=== PATIENT | male | born 1990 | race Caucasian/White ===

== ENCOUNTER 2018-05-15 22:28 | Emergency (ER) | payer BC | END 2018-05-16 00:43 | disposition left against medical advice (07) | LOC: JD.ED 22:28 | DX: Z53.21 Procedure and treatment not carried out due to patient leaving prior to being seen by health care provider (principal) ==

== ENCOUNTER 2018-06-05 11:05 | Inpatient (IN) | payer BC, MEDICAID ==
[2018-06-05] MEDS ORDERED: Sodium Chloride 0.9% 1,000 ML IV ONE ×3 (11:25→14:43)
[2018-06-05] MEDS ORDERED: Thiamine 100 MG in Sodium Chloride 0.9% 100 ML IV ONE (11:57)
[2018-06-05] MEDS ORDERED: Thiamine 200 MG/2 ML MDV IVPUSH ONE (12:15)
[2018-06-05] MEDS ORDERED: Multivitamins,Therapeutic Tab PO ONE (12:30)
[2018-06-05] MEDS ORDERED: Folic Acid 1 MG Tab PO ONE ×2 (12:30→13:32)
[2018-06-05] MEDS ORDERED: LORazepam 2 MG/ML SDV IVPUSH ONE (12:34)
--- NOTE | 2018-06-05 12:42 | EDM.PDOCBH ---
ED HPI GENERAL MEDICAL PROBLEM - General Chief Complaint: Drug or Alcohol Abuse Stated Complaint: [facility] Time Seen by Provider: 06/05/18 11:16 Source of Information: Reports: Patient, Family History Limitations: Reports: No Limitations, Intoxication - History of Present Illness INITIAL COMMENTS - FREE TEXT/NARRATIVE: 28 yo M h/o DM2 and HTN brought in by mother for EtOH detox as he has been drinking the past 6 days. His last drink was at 8:00 today. He has not eaten since Monday and doesn't remember the last time he took any of his medications. He stated he didn't even know what day it was until he asked EMS. He states he was "forced to come here" but after talking with him he is " looking forward to rehab and I really do want help". He states he has h/o depression and anxiety and self-medicates with drinking. He feels he has not been able to find help for these issues, has never been to counseling but is interested. He has detoxed before, but has no previous history of DT, seizures/ hallucinations that he knows of, just "shakes and sweats " a lot. He has been drinking for the past 11 years, with it "becoming an addiction" within the last 6-7 years where he is drinking 2L of spiced rum daily. He had 1 year of drinking daily and "was only sober 4 nights that year". He was last sober January 2017 for 7 months, then started drinking again in August 2017. He states has times where he will quit "cold turkey off and on" for a couple weeks at a time. At this point, he has trouble stopping and does have suicidal thoughts, stating "I thought I'd be by now". He denies any suicidal plan, states "I don't want to and I'm too much of a coward to actually do it", and denies homicidal ideation. He states his family is his support system and the reason he is still alive. He does have guns at home, but mother has since taken them all away. He denies any other symptoms at this time, except one episode of vomiting. No other concern at this time. PCP is Dr. Bauer. - Related Data Allergies Allergy/AdvReac Type Severity Reaction Status Date / Time No Known Allergies Allergy Verified 06/05/18 11:11 Home Meds: Home Meds FLUoxetine HCl [Fluoxetine] 40 mg PO DAILY 05/15/18 [History] Nebivolol HCl [Bystolic] 1 tab PO DAILY 05/15/18 [History] Valsartan 1 tab PO DAILY 05/15/18 [History] amLODIPine Besylate [Amlodipine Besylate] 1 tab PO DAILY 05/15/18 [History] Past Medical History Cardiovascular History: Reports: Hypertension Respiratory History: Reports: Asthma Psychiatric History: Reports: Anxiety, Depression Endocrine/Metabolic History: Reports: Diabetes, Type II Social & Family History - Tobacco Use Smoking Status *Q: Never Smoker - Caffeine Use Caffeine Use: Reports: Soda - Recreational Drug Use Recreational Drug Use: No ED ROS GENERAL - Review of Systems Review Of Systems: ROS reveals no pertinent complaints other than HPI. GI/Abdominal: Reports: Vomiting (1 episode earlier today). Denies: Abdominal Pain, Diarrhea, Nausea ED EXAM, BEHAVIORAL HEALTH - Physical Exam Exam: See Below Exam Limited By: Intoxication General Appearance: Alert, Anxious, Obese Eye Exam: Bilateral Eye: EOMI, Normal Inspection, PERRL Ears: Normal External Exam, Hearing Grossly Normal Nose: Normal Inspection, Normal Mucosa, No Blood Throat/Mouth: Normal Inspection, Normal Lips, Normal Teeth, Normal Gums, Normal Oropharynx, Normal Voice, No Airway Compromise Head: Atraumatic, Normocephalic Neck: Normal Inspection, Supple, Non-Tender, Full Range of Motion Respiratory/Chest: No Respiratory Distress, Lungs Clear, Normal Breath Sounds, No Accessory Muscle Use, Chest Non-Tender Cardiovascular: Normal Peripheral Pulses, No Edema, No Gallop, No JVD, No Murmur , No Rub, Tachycardia GI/Abdominal: Normal Bowel Sounds, Soft, Non-Tender, No Organomegaly, No Distention, No Abnormal Bruit, No Mass (Male) Exam: Deferred Rectal (Males) Exam: Deferred Back Exam: Normal Inspection Psychiatric: Alert, Normal Cognition, Oriented, Depressed Mood, Tearful, Suicidal Thoughts. No: Homicidal Thoughts, Suicidal Plan, Auditory Hallucinations, Visual Hallucinations Skin Exam: Warm, Dry, Intact, Normal color COURSE, BEHAVIORAL HEALTH COMP - Course Vital Signs: Last Vital Signs Temp 98.8 F 06/05/18 11:07 Pulse 113 H 06/05/18 11:07 Resp 16 06/05/18 11:07 BP 132/52 L 06/05/18 11:07 Pulse Ox 92 L 06/05/18 11:07 Orders, Labs, Meds: Active Orders 24 hr Category Date Time Status CIWAA Assessment [RC] Q30M Care 06/05/18 12:30 Active DRUG SCREEN, URINE [URCHEM] Stat Lab 06/05/18 11:23 Ordered Sodium Chloride 0.9% [Normal Saline] 1,000 ml Med 06/05/18 14:43 Active IV ONETIME Medication Orders Sodium Chloride (Normal Saline) 1,000 mls @ 999 mls/hr IV ONETIME ONE Stop: 06/05/18 15:43 Laboratory Tests 06/05/18 06/05/18 Range/Units 11:25 11:25 WBC 14.87 H (4.23-9.07) K/mm3 RBC 5.57 (4.63-6.08) M/mm3 Hgb 15.2 (13.7-17.5) gm/L Hct 43.8 (40.1-51.0) % MCV 78.6 L (79.0-92.2) fl MCH 27.3 (25.7-32.2) pg MCHC 34.7 (32.2-35.5) g/dl RDW Std Deviation 44.9 H (35.1-43.9) fL Plt Count 336 (163-337) K/mm3 MPV 8.4 L (9.4-12.3) fl Neut % (Auto) 85.2 H (34.0-67.9) % Lymph % (Auto) 6.9 L (21.8-53.1) % [place] % (Auto) 6.2 (5.3-12.2) % Eos % (Auto) 0.7 L (0.8-7.0) Baso % (Auto) 0.7 (0.1-1.2) % Neut # (Auto) 12.66 H (1.78-5.38) K/mm3 Lymph # (Auto) 1.03 L (1.32-3.57) K/mm3 [place] # (Auto) 0.92 H (0.30-0.82) K/mm3 Eos # (Auto) 0.11 (0.04-0.54) K/mm3 Baso # (Auto) 0.10 H (0.01-0.08) K/mm3 Manual Slide Review Abnormal smear Sodium 138 (136-145) mEq/L Potassium 4.2 (3.5-5.1) mEq/L Chloride 100 (98-107) mEq/L Carbon Dioxide 18 L (21-32) mEq/L Anion Gap 24.2 H (5-15) BUN 17 (7-18) mg/dL Creatinine 1.5 H (0.7-1.3) mg/dL Est Cr Clr Drug Dosing 72.01 mL/min Estimated GFR (MDRD) 55 (>60) mL/min BUN/Creatinine Ratio 11.3 L (14-18) Glucose 138 H (74-106) mg/dL Calcium 8.8 (8.5-10.1) mg/dL Total Bilirubin 0.4 (0.2-1.0) mg/dL AST 62 H (15-37) U/L ALT 68 H (16-63) U/L Alkaline Phosphatase 119 H (46-116) U/L Total Protein 7.8 (6.4-8.2) g/dl Albumin 4.0 (3.4-5.0) g/dl Globulin 3.8 gm/dL Albumin/Globulin Ratio 1.1 (1-2) Ethyl Alcohol 0.25 (0.00) gm% Medications Generic Name Dose Route Start Last Admin Trade Name Freq PRN Reason Stop Dose Admin Sodium Chloride 1,000 mls @ 999 mls/hr 06/05/18 14:43 Normal Saline IV 06/05/18 15:43 ONETIME ONE Discontinued Medications Generic Name Dose Route Start Last Admin Trade Name Jeanq PRN Reason Stop Dose Admin Folic Acid 1 mg 06/05/18 12:30 06/05/18 13:33 Folic Acid PO 06/05/18 12:31 Not Given ONETIME ONE Folic Acid 1 mg 06/05/18 13:32 06/05/18 13:33 Folic Acid PO 06/05/18 13:33 1 mg ONETIME ONE Administration Sodium Chloride 1,000 mls @ 999 mls/hr 06/05/18 11:25 06/05/18 12:01 Normal Saline IV 06/05/18 12:25 999 mls/hr ONETIME ONE Administration Thiamine HCl 100 mg/ Sodium 101 mls @ 202 mls/hr 06/05/18 11:57 Chloride IV 06/05/18 11:58 ONETIME ONE Sodium Chloride 1,000 mls @ 999 mls/hr 06/05/18 12:41 06/05/18 13:11 Normal Saline IV 06/05/18 13:41 999 mls/hr ONETIME ONE Administration Lorazepam 0.5 mg 06/05/18 12:34 06/05/18 13:12 Ativan IVPUSH 06/05/18 12:35 0.5 mg ONETIME ONE Administration Multivitamins 1 each 06/05/18 12:30 06/05/18 13:22 Thera PO 06/05/18 12:31 1 each ONETIME ONE Administration Thiamine HCl 100 mg 06/05/18 12:15 06/05/18 12:24 Vitamin B-1 IVPUSH 06/05/18 12:16 100 mg ONETIME ONE Administration Re-Assessment/Re-Exam: 06/05/18 11:25 I ordered CBC, CMP, Urine Drug Screen, EtOH 1L bolus NS IVF Thiamine, Folic Acid, Multivitamin 06/05/18 12:41 Ativan 0.5 IV push Ordered another 1L bolus NS IVF 06/05/18 13:00 Pt states he is feeling better, is resting right now. 06/05/18 14:[address] Zepeda our hospitalist. He will come see the patient and decide if can be admitted. 06/05/18 15:07 Dr. Zepeda has accepted the patient. He would like him placed in ICU. Departure - Departure Time of Disposition: 15:08 Disposition: Admitted As Inpatient 64 Condition: Fair Clinical Impression: Alcohol withdrawal syndrome, Alcohol abuse - Discharge Information *PRESCRIPTION DRUG MONITORING PROGRAM REVIEWED*: Not Applicable *COPY OF PRESCRIPTION DRUG MONITORING REPORT IN PATIENT MELANIA: Not Applicable Referrals: João Mazariegos MD [Primary Care Provider] - - My Orders Last 24 Hours: My Active Orders 06/05/18 11:23 DRUG SCREEN, URINE [URCHEM] Stat 06/05/18 12:30 CIWAA Assessment [RC] Q30M 06/05/18 14:43 Sodium Chloride 0.9% [Normal Saline] 1,000 ml IV ONETIME - Assessment/Plan Last 24 Hours: My Active Orders 06/05/18 11:23 DRUG SCREEN, URINE [URCHEM] Stat 06/05/18 12:30 CIWAA Assessment [RC] Q30M 06/05/18 14:43 Sodium Chloride 0.9% [Normal Saline] 1,000 ml IV ONETIME
[2018-06-05] MEDS ORDERED: Ondansetron 4 MG Tab.DIS PO PRN (16:09)
[2018-06-05] MEDS ORDERED: AMLODIPINE BESYLATE PO SCH (16:15)
[2018-06-05] MEDS ORDERED: LORazepam 2 MG/ML SDV IVPUSH PRN ×3 (16:15→18:02)
[2018-06-05] MEDS ORDERED: VALSARTAN PO SCH (16:15)
[2018-06-05] MEDS ORDERED: FLUOXETINE HCL 40 MG PO SCH (16:15)
[2018-06-05] MEDS ORDERED: NEBIVOLOL HCL PO SCH (16:15)
--- NOTE | 2018-06-05 17:03 | PCM.HP ---
H&P History of Present Illness - General Date of Service: 06/05/18 Admit Problem/Dx: Admission Diagnosis/Problem Admission Diagnosis/Problem Alcohol withdrawal syndrome - History of Present Illness Initial Comments - Free Text/Narative: This 28-year-old male was brought in by EMS secondary to alcohol intoxication. Patient states that he "got caught" drinking and his family and friends want him to go through detox. Patient states that he becomes socially withdrawn and his friends and noticed the start strengthening again. He has a long 5 to six- year history of heavy drinking. Or the last year to year and a half he has been drinking 1.75 L of 60 proof alcohol for several days in a row and then will stop drinking cold turkey. He states when he does he does get shaky but he does not have any seizures or other repercussions. Previous to a urinary half ago he was a daily drinker and did go through rehabilitation. ER note states that he has been drinking for 11 years. 2 weeks ago he did discuss this and his anxiety with his primary care doctor Dr. Bauer and he was set up with [facility] clinic. He went to the walk in screening and never followed up for care. Patient has been drinking for the last 6 days and his last drink was this morning. He had 8 ounces of spiced rum. He did state he vomited one time this morning. Patient denies any abdominal pain, chest pain, shortness of breath , hematochezia, melena, black stools, bloody stools. He denies any hematemesis. When asked if he wanted to go through rehabilitation he stated, "I want to quit but I am not sure I am ready to." Patient states he is also on metformin for diabetes. He also states that last month he had a hemoglobin A1c done which was 5.2. He is on medication for blood pressure and anxiety. - Related Data Allergies/Adverse Reactions: Allergies Allergy/AdvReac Type Severity Reaction Status Date / Time No Known Allergies Allergy Verified 06/05/18 11:11 Home Medications: Home Meds FLUoxetine HCl [Fluoxetine] 40 mg PO DAILY 05/15/18 [History] Nebivolol HCl [Bystolic] 1 tab PO DAILY 05/15/18 [History] Valsartan 1 tab PO DAILY 05/15/18 [History] amLODIPine Besylate [Amlodipine Besylate] 1 tab PO DAILY 05/15/18 [History] Past Medical History Cardiovascular History: Reports: Hypertension Respiratory History: Reports: Asthma Psychiatric History: Reports: Anxiety, Depression Endocrine/Metabolic History: Reports: Diabetes, Type II Social & Family History - Tobacco Use Smoking Status *Q: Never Smoker - Caffeine Use Caffeine Use: Reports: Soda - Recreational Drug Use Recreational Drug Use: No H&P Review of Systems - Review of Systems: Review Of Systems: See Below General: Reports: No Symptoms. Denies: Fever, Chills, Weakness HEENT: Reports: No Symptoms. Denies: Dysphasia, Sore Throat Pulmonary: Reports: No Symptoms. Denies: Shortness of Breath, Wheezing Cardiovascular: Reports: No Symptoms. Denies: Chest Pain, Palpitations Gastrointestinal: Reports: No Symptoms. Denies: Abdominal Pain Genitourinary: Reports: No Symptoms. Denies: Dysuria, Frequency Musculoskeletal: Reports: No Symptoms. Denies: Back Pain, Muscle Pain Skin: Reports: No Symptoms Psychiatric: Denies: Confusion, Depression, Agitation, Hallucinations (Auditory) , Hallucinations (Visual) Neurological: Denies: Confusion, Dizziness, Headache, Seizure, Change in Speech Hematologic/Lymphatic: Reports: No Symptoms Immunologic: Reports: No Symptoms Exam - Exam Exam: See Below - Vital Signs Vital Signs: Last Vital Signs Temp 98.8 F 06/05/18 11:07 Pulse 113 H 06/05/18 11:07 Resp 16 06/05/18 11:07 BP 132/52 L 06/05/18 11:07 Pulse Ox 92 L 06/05/18 11:07 Weight: 340 lb - Exam Quality Assessment: No: Supplemental Oxygen General: Alert, Oriented, Cooperative, Sedated HEENT: Conjunctiva Clear. No: Mucosa Moist & [place] Neck: Supple, Trachea Midline Lungs: Clear to Auscultation, Normal Respiratory Effort Cardiovascular: Regular Rate, Regular Rhythm GI/Abdominal Exam: Normal Bowel Sounds, Soft, Non-Tender, No Organomegaly, No Distention Extremities: Normal Inspection, Normal Range of Motion, No Pedal Edema, Normal Capillary Refill Skin: Warm, Dry, Intact Neurological: Cranial Nerves Intact, Strength Equal Bilateral, Normal Tone Neuro Extensive - Mental Status: Alert, Oriented x3, Normal Mood/Affect, Normal Cognition, Memory Intact Neuro Extensive - Motor, Sensory, Reflexes: CN II-XII Intact Psychiatric: Alert, Normal Affect, Normal Mood - Patient Data Lab Results Last 24 hrs: Laboratory Results - last 24 hr 06/05/18 06/05/18 06/05/18 Range/Units 11:25 11:25 15:30 WBC 14.87 H (4.23-9.07) K/mm3 RBC 5.57 (4.63-6.08) M/mm3 Hgb 15.2 (13.7-17.5) gm/L Hct 43.8 (40.1-51.0) % MCV 78.6 L (79.0-92.2) fl MCH 27.3 (25.7-32.2) pg MCHC 34.7 (32.2-35.5) g/dl RDW Std Deviation 44.9 H (35.1-43.9) fL Plt Count 336 (163-337) K/mm3 MPV 8.4 L (9.4-12.3) fl Neut % (Auto) 85.2 H (34.0-67.9) % Lymph % (Auto) 6.9 L (21.8-53.1) % [place] % (Auto) 6.2 (5.3-12.2) % Eos % (Auto) 0.7 L (0.8-7.0) Baso % (Auto) 0.7 (0.1-1.2) % Neut # (Auto) 12.66 H (1.78-5.38) K/mm3 Lymph # (Auto) 1.03 L (1.32-3.57) K/mm3 [place] # (Auto) 0.92 H (0.30-0.82) K/mm3 Eos # (Auto) 0.11 (0.04-0.54) K/mm3 Baso # (Auto) 0.10 H (0.01-0.08) K/mm3 Manual Slide Review Abnormal smear Sodium 138 (136-145) mEq/L Potassium 4.2 (3.5-5.1) mEq/L Chloride 100 (98-107) mEq/L Carbon Dioxide 18 L (21-32) mEq/L Anion Gap 24.2 H (5-15) BUN 17 (7-18) mg/dL Creatinine 1.5 H (0.7-1.3) mg/dL Est Cr Clr Drug Dosing 72.01 mL/min Estimated GFR (MDRD) 55 (>60) mL/min BUN/Creatinine Ratio 11.3 L (14-18) Glucose 138 H (74-106) mg/dL Calcium 8.8 (8.5-10.1) mg/dL Total Bilirubin 0.4 (0.2-1.0) mg/dL AST 62 H (15-37) U/L ALT 68 H (16-63) U/L Alkaline Phosphatase 119 H (46-116) U/L Total Protein 7.8 (6.4-8.2) g/dl Albumin 4.0 (3.4-5.0) g/dl Globulin 3.8 gm/dL Albumin/Globulin Ratio 1.1 (1-2) Urine Opiates Screen Negative (ZDQXYF=579) Ur Buprenorphine Scrn Negative (CUTOFF=10) Ur Oxycodone Screen Negative (TZY5MZ=901) Urine Methadone Screen Negative (XAG4HP=035) Ur Propoxyphene Screen Negative (UOMWUG=550) Ur Barbiturates Screen Negative (YBPTTE=865) Ur Tricyclics Screen Negative (NOTZHU=665) Ur Phencyclidine Scrn Negative (CUTOFF=25) Ur Amphetamine Screen Negative (YNBWHU=304) U Methamphetamines Scrn Negative (DTHFHX=974) U Benzodiazepines Scrn Negative (LAZXBO=784) U Cocaine Metab Screen Negative (EXFUFD=663) U Marijuana (THC) Screen Negative (CUTOFF=50) Ethyl Alcohol 0.25 (0.00) gm% Result Diagrams: 06/05/18 11:25 06/05/18 11:25 - Problem List (1) Alcohol withdrawal syndrome SNOMED Code(s): 585290709 ICD Code: F10.239 - ALCOHOL DEPENDENCE WITH WITHDRAWAL, UNSPECIFIED Status : Acute Current Visit: Yes (2) Alcohol abuse SNOMED Code(s): 10338396 ICD Code: F10.10 - ALCOHOL ABUSE, UNCOMPLICATED Status: Acute Current Visit: Yes (3) Anxiety SNOMED Code(s): 71827878 ICD Code: F41.9 - ANXIETY DISORDER, UNSPECIFIED Status: Acute Current Visit: Yes (4) HTN (hypertension) SNOMED Code(s): 94390415 ICD Code: I10 - ESSENTIAL (PRIMARY) HYPERTENSION Status: Acute Current Visit: Yes Problem List Initiated/Reviewed/Updated: Yes Orders Last 24hrs: Active Orders 24 hr Category Date Time Status Patient Status [ADT] Routine ADT 06/05/18 16:09 Active Bedrest Bathroom Privileges [RC] ASDIRECTED Care 06/05/18 16:09 Active CIWAA Assessment [RC] Q30M Care 06/05/18 12:30 Active Cardiac Monitoring [RC] CONTINUOUS Care 06/05/18 16:10 Active Height and Weight [RC] DAILY Care 06/05/18 16:09 Active Intake and Output [RC] QSHIFT Care 06/05/18 16:10 Active Oxygen Therapy [RC] PRN Care 06/05/18 16:09 Active Pulse Oximetry [RC] CONTINUOUS Care 06/05/18 16:10 Active VTE/DVT Education [RC] PER UNIT ROUTINE Care 06/05/18 16:09 Active Vital Signs [RC] Q4H Care 06/05/18 16:09 Active Consult to Case Management/Hairspring Staker [CONS] Cons 06/05/18 16:09 Active Routine Regular Diet [DIET] Diet 06/05/18 Dinner Active CBC WITH AUTO DIFF [HEME] AM Lab 06/06/18 05:11 Ordered COMPREHENSIVE METABOLIC PN,CMP [CHEM] AM Lab 06/06/18 05:11 Ordered MAGNESIUM [CHEM] AM Lab 06/06/18 05:11 Ordered PHOSPHORUS [CHEM] AM Lab 06/06/18 05:11 Ordered Enoxaparin [Lovenox] Med 06/06/18 09:00 Active 40 mg SUBCUT DAILY FLUoxetine HCl Med 06/05/18 16:15 Active 40 mg PO DAILY LORazepam [Ativan] Med 06/05/18 16:37 Ordered 1 mg IVPUSH ASDIRECTED PRN Lactated Ringers [Ringers, Lactated] 1,000 ml Med 06/05/18 16:15 Active IV ASDIRECTED Nebivolol HCl [Bystolic] Med 06/05/18 16:15 Active 1 tab PO DAILY Ondansetron [Zofran ODT] Med 06/05/18 16:09 Active 4 mg PO Q4H PRN Ondansetron [Zofran] Med 06/05/18 16:09 Active 4 mg IV Q4H PRN Valsartan [Valsartan] Med 06/05/18 16:15 Active 1 tab PO DAILY amLODIPine Besylate [Amlodipine Besylate] Med 06/05/18 16:15 Active 1 tab PO DAILY chlordiazePOXIDE [Librium] Med 06/05/18 16:18 Active 100 mg PO TID Resuscitation Status Routine Resus Stat 06/05/18 16:09 Ordered Medication Orders Chlordiazepoxide HCl (Librium) 100 mg PO TID TIERA Enoxaparin Sodium (Lovenox) 40 mg SUBCUT DAILY TIERA Lactated Ringer's (Ringers, Lactated) 1,000 mls @ 200 mls/hr IV ASDIRECTED TIERA Lorazepam (Ativan) 1 mg IVPUSH ASDIRECTED PRN; Protocol PRN Reason: Withdrawal Symptoms Non-Formulary Medication (Amlodipine Besylate [Amlodipine Besylate]) 1 tab PO DAILY TIERA Non-Formulary Medication (Fluoxetine Hcl) 40 mg PO DAILY TIERA Non-Formulary Medication (Nebivolol Hcl [Bystolic]) 1 tab PO DAILY TIERA Non-Formulary Medication (Valsartan [Valsartan]) 1 tab PO DAILY TIERA Ondansetron HCl (Zofran Odt) 4 mg PO Q4H PRN PRN Reason: nausea, able to take PO Ondansetron HCl (Zofran) 4 mg IV Q4H PRN PRN Reason: Nausea/Vomiting Assessment/Plan Comment:: Alcohol abuse with intent to detox * Patient will be brought in to the hospital for occult detoxification. * Admit to ICU with CIWA and Ativan protocol * Librium 50 mg 3 times a day * Consult discharge planning and social work. * Rehydrate to correct anion gap * Monitor electrolytes closely. * Low seizure risk. Anxiety * Continue on Prozac 40 mg a day. * Consider outpatient therapy. Hypertension * Continue home meds. Chewing tobacco abuse * Patient does not want a patch at this time. Monitor closely. Chronic medical conditions: Asthma and possible type 2 diabetes. Monitor respiratory. He is not on any home inhalers. Get hemoglobin A1c. Reportedly his last hemoglobin A1c was 5.2. We will not restart his metformin.
[2018-06-05] MEDS: Lactated Ringers 1,000 ML IV SCH ×2 (17:22→22:28)
[2018-06-05] MEDS: chlordiazePOXIDE 25 MG Cap PO SCH ×2 (17:44→20:58)
[2018-06-05] MEDS: Ondansetron 4 MG/2 ML SDV IV PRN ×2 (17:57→22:28)
[2018-06-06] MEDS: Lactated Ringers 1,000 ML IV SCH (03:45)
[2018-06-06] MEDS ORDERED: Formoterol/Mometasone 200-5 MCG 8.8 GM Inhaler IH PRN (06:59)
[2018-06-06] MEDS ORDERED: Magnesium Sulfate/Water 4 GM in Premix Bag 1 BAG IV ONE (07:18)
[2018-06-06] MEDS: Dextrose 5%-Lactated Ringers 1,000 ML IV SCH ×2 (07:57→16:12)
[2018-06-06] MEDS: FLUoxetine 20 MG Cap PO SCH (08:42)
[2018-06-06] MEDS: Hydrochlorothiazide 25 MG Tab PO SCH (08:42)
[2018-06-06] MEDS: chlordiazePOXIDE 25 MG Cap PO SCH ×5 (08:42→20:56)
[2018-06-06] MEDS: Losartan 100 MG Tab PO SCH (08:43)
[2018-06-06] MEDS: Pantoprazole 40 MG Tab.CR PO SCH ×2 (08:43→20:57)
[2018-06-06] MEDS: amLODIPine 10 MG Tab PO SCH (08:44)
[2018-06-06] MEDS: Enoxaparin 40 MG/0.4 ML Syringe SUBCUT SCH (08:45)
[2018-06-06] MEDS: Carvedilol 12.5 MG Tab PO SCH (08:45)
[2018-06-06] MEDS: Nystatin Crm 30 GM Tube TOP SCH (08:46)
[2018-06-06] MEDS ORDERED: Cephalexin 500 MG Cap PO SCH (11:00)
--- NOTE | 2018-06-06 13:14 | PCM.PN ---
- General Info Date of Service: 06/06/18 Admission Dx/Problem (Free Text): Admission Diagnosis/Problem Admission Diagnosis/Problem Alcohol withdrawal syndrome Subjective Update: Patient had uneventful evening. He did receive 1 mg of Ativan IV for elevated CIWA score. This morning he has no complaints. He did experience some nausea earlier in the day that was relieved with Zofran. Nursing did find an infected right great toenail bed secondary to ingrowing. Patient does state that the toe is tender to palpation. He is not sure how long it has been like that. Functional Status: Reports: Pain Controlled - Review of Systems General: Reports: No Symptoms. Denies: Fever, Weakness HEENT: Reports: No Symptoms Pulmonary: Reports: No Symptoms. Denies: Shortness of Breath, Pleuritic Chest Pain, Cough Cardiovascular: Reports: No Symptoms. Denies: Chest Pain, Palpitations Gastrointestinal: Reports: No Symptoms. Denies: Abdominal Pain Psychiatric: Reports: No Symptoms. Denies: Confusion, Depression - Patient Data Vitals - Most Recent: Last Vital Signs Temp 97.4 F 06/06/18 11:39 Pulse 81 06/06/18 11:39 Resp 16 06/06/18 11:39 BP 128/56 L 06/06/18 11:39 Pulse Ox 95 06/06/18 11:39 Weight - Most Recent: 354 lb 4.8 oz I&O - Last 24 Hours: Intake & Output 06/05/18 06/06/18 06/06/18 22:59 06:59 14:59 Intake Total 2181 600 Output Total 1000 Balance 2181 -400 Lab Results Last 24 Hours: Laboratory Results - last 24 hr 06/05/18 06/05/18 06/06/18 Range/Units 11:25 15:30 05:52 WBC 6.09 (4.23-9.07) K/mm3 RBC 4.78 (4.63-6.08) M/mm3 Hgb 12.7 L (13.7-17.5) gm/L Hct 38.4 L (40.1-51.0) % MCV 80.3 (79.0-92.2) fl MCH 26.6 (25.7-32.2) pg MCHC 33.1 (32.2-35.5) g/dl RDW Std Deviation 45.9 H (35.1-43.9) fL Plt Count 209 (163-337) K/mm3 MPV 8.6 L (9.4-12.3) fl Neut % (Auto) 62.3 (34.0-67.9) % Lymph % (Auto) 21.3 L (21.8-53.1) % Sheridan % (Auto) 12.8 H (5.3-12.2) % Eos % (Auto) 2.6 (0.8-7.0) Baso % (Auto) 0.5 (0.1-1.2) % Neut # (Auto) 3.79 (1.78-5.38) K/mm3 Lymph # (Auto) 1.30 L (1.32-3.57) K/mm3 Sheridan # (Auto) 0.78 (0.30-0.82) K/mm3 Eos # (Auto) 0.16 (0.04-0.54) K/mm3 Baso # (Auto) 0.03 (0.01-0.08) K/mm3 Sodium (136-145) mEq/L Potassium (3.5-5.1) mEq/L Chloride (98-107) mEq/L Carbon Dioxide (21-32) mEq/L Anion Gap (5-15) BUN (7-18) mg/dL Creatinine (0.7-1.3) mg/dL Est Cr Clr Drug Dosing mL/min Estimated GFR (MDRD) (>60) mL/min BUN/Creatinine Ratio (14-18) Glucose (74-106) mg/dL Calcium (8.5-10.1) mg/dL Phosphorus (2.6-4.7) mg/dL Magnesium 1.7 L (1.8-2.4) mg/dl Total Bilirubin (0.2-1.0) mg/dL AST (15-37) U/L ALT (16-63) U/L Alkaline Phosphatase (46-116) U/L Total Protein (6.4-8.2) g/dl Albumin (3.4-5.0) g/dl Globulin gm/dL Albumin/Globulin Ratio (1-2) Lipase (73-393) U/L Urine Opiates Screen Negative (HRCBNJ=550) Ur Buprenorphine Scrn Negative (CUTOFF=10) Ur Oxycodone Screen Negative (LUA9YE=137) Urine Methadone Screen Negative (ZGH1EZ=055) Ur Propoxyphene Screen Negative (ZYIDHF=062) Ur Barbiturates Screen Negative (SRCWHO=536) Ur Tricyclics Screen Negative (ZJSTGZ=459) Ur Phencyclidine Scrn Negative (CUTOFF=25) Ur Amphetamine Screen Negative (MMVALD=217) U Methamphetamines Scrn Negative (WCIMLZ=663) U Benzodiazepines Scrn Negative (CQQIVF=381) U Cocaine Metab Screen Negative (XHUXSN=078) U Marijuana (THC) Screen Negative (CUTOFF=50) 06/06/18 06/06/18 Range/Units 05:52 05:52 WBC (4.23-9.07) K/mm3 RBC (4.63-6.08) M/mm3 Hgb (13.7-17.5) gm/L Hct (40.1-51.0) % MCV (79.0-92.2) fl MCH (25.7-32.2) pg MCHC (32.2-35.5) g/dl RDW Std Deviation (35.1-43.9) fL Plt Count (163-337) K/mm3 MPV (9.4-12.3) fl Neut % (Auto) (34.0-67.9) % Lymph % (Auto) (21.8-53.1) % Sheridan % (Auto) (5.3-12.2) % Eos % (Auto) (0.8-7.0) Baso % (Auto) (0.1-1.2) % Neut # (Auto) (1.78-5.38) K/mm3 Lymph # (Auto) (1.32-3.57) K/mm3 Sheridan # (Auto) (0.30-0.82) K/mm3 Eos # (Auto) (0.04-0.54) K/mm3 Baso # (Auto) (0.01-0.08) K/mm3 Sodium 137 (136-145) mEq/L Potassium 4.1 (3.5-5.1) mEq/L Chloride 101 (98-107) mEq/L Carbon Dioxide 27 (21-32) mEq/L Anion Gap 13.1 (5-15) BUN 14 (7-18) mg/dL Creatinine 1.1 (0.7-1.3) mg/dL Est Cr Clr Drug Dosing 101.39 mL/min Estimated GFR (MDRD) > 60 (>60) mL/min BUN/Creatinine Ratio 12.7 L (14-18) Glucose 108 H (74-106) mg/dL Calcium 8.6 (8.5-10.1) mg/dL Phosphorus 2.9 (2.6-4.7) mg/dL Magnesium 1.5 L (1.8-2.4) mg/dl Total Bilirubin 0.7 (0.2-1.0) mg/dL AST 52 H (15-37) U/L ALT 55 (16-63) U/L Alkaline Phosphatase 114 (46-116) U/L Total Protein 6.5 (6.4-8.2) g/dl Albumin 3.3 L (3.4-5.0) g/dl Globulin 3.2 gm/dL Albumin/Globulin Ratio 1.0 (1-2) Lipase 244 (73-393) U/L Urine Opiates Screen (NWWFJU=996) Ur Buprenorphine Scrn (CUTOFF=10) Ur Oxycodone Screen (BTV0US=854) Urine Methadone Screen (UMO4XY=441) Ur Propoxyphene Screen (ERUXAY=758) Ur Barbiturates Screen (QPUAZP=575) Ur Tricyclics Screen (SSJMYM=577) Ur Phencyclidine Scrn (CUTOFF=25) Ur Amphetamine Screen (PUKSPQ=010) U Methamphetamines Scrn (RKTAUR=498) U Benzodiazepines Scrn (GTACVG=999) U Cocaine Metab Screen (LDFVSD=732) U Marijuana (THC) Screen (CUTOFF=50) Med Orders - Current: Current Medications Amlodipine Besylate (Norvasc) 10 mg PO DAILY [facility] Last Admin: 06/06/18 08:44 Dose: 10 mg Carvedilol (Coreg) 12.5 mg PO DAILY [facility] Last Admin: 06/06/18 08:45 Dose: 12.5 mg Cephalexin (Keflex) 500 mg PO BID [facility] Last Admin: 06/06/18 11:36 Dose: 500 mg Chlordiazepoxide HCl (Librium) 75 mg PO QID [facility] Enoxaparin Sodium (Lovenox) 40 mg SUBCUT DAILY [facility] Last Admin: 06/06/18 08:45 Dose: 40 mg Fluoxetine HCl (Prozac) 40 mg PO DAILY [facility] Last Admin: 06/06/18 08:42 Dose: 40 mg Folic Acid (Folic Acid) 1 mg PO BEDTIME [facility] Hydrochlorothiazide (Hydrochlorothiazide) 25 mg PO DAILY [facility] Last Admin: 06/06/18 08:42 Dose: 25 mg Dextrose/Lactated Ringer's (Dextrose 5%-Lactated Ringers) 1,000 mls @ 125 mls/ hr IV ASDIRECTED TIERA Last Admin: 06/06/18 07:57 Dose: 125 mls/hr Lorazepam (Ativan) 1 - 3 mg IVPUSH ASDIRECTED PRN; Protocol PRN Reason: Withdrawal Symptoms Last Admin: 06/05/18 20:12 Dose: 1 mg Losartan Potassium (Cozaar) 100 mg PO DAILY [facility] Last Admin: 06/06/18 08:43 Dose: 100 mg Mometasone Furoate/Formoterol Fumar (Dulera 200-5 Mcg) 2 puff IH BID PRN PRN Reason: Shortness of Breath Nystatin (Nystatin Crm) 0 gm TOP DAILY [facility] Last Admin: 06/06/18 08:46 Dose: Not Given Ondansetron HCl (Zofran Odt) 4 mg PO Q4H PRN PRN Reason: nausea, able to take PO Last Admin: 06/06/18 12:03 Dose: 4 mg Ondansetron HCl (Zofran) 4 mg IV Q4H PRN PRN Reason: Nausea/Vomiting Last Admin: 06/05/18 22:28 Dose: 4 mg Pantoprazole Sodium (Protonix) 40 mg PO BID [facility] Last Admin: 06/06/18 08:43 Dose: 40 mg Thiamine HCl (Vitamin B-1) 100 mg PO BEDTIME [facility] Discontinued Medications Chlordiazepoxide HCl (Librium) 100 mg PO TID [facility] Last Admin: 06/06/18 08:42 Dose: 100 mg Folic Acid (Folic Acid) 1 mg PO ONETIME ONE Stop: 06/05/18 12:31 Last Admin: 06/05/18 13:33 Dose: Not Given Folic Acid (Folic Acid) 1 mg PO ONETIME ONE Stop: 06/05/18 13:33 Last Admin: 06/05/18 13:33 Dose: 1 mg Sodium Chloride (Normal Saline) 1,000 mls @ 999 mls/hr IV ONETIME ONE Stop: 06/05/18 12:25 Last Admin: 06/05/18 12:01 Dose: 999 mls/hr Thiamine HCl 100 mg/ Sodium (Chloride) 101 mls @ 202 mls/hr IV ONETIME ONE Stop: 06/05/18 11:58 Last Admin: 06/05/18 18:49 Dose: Not Given Sodium Chloride (Normal Saline) 1,000 mls @ 999 mls/hr IV ONETIME ONE Stop: 06/05/18 13:41 Last Admin: 06/05/18 13:11 Dose: 999 mls/hr Sodium Chloride (Normal Saline) 1,000 mls @ 999 mls/hr IV ONETIME ONE Stop: 06/05/18 15:43 Last Admin: 06/05/18 15:34 Dose: 999 mls/hr Lactated Ringer's (Ringers, Lactated) 1,000 mls @ 200 mls/hr IV ASDIRECTED [facility] Last Admin: 06/06/18 03:45 Dose: 200 mls/hr Magnesium Sulfate 4 gm/ Premix 50 mls @ 12.5 mls/hr IV ONETIME ONE Stop: 06/06/18 11:17 Last Admin: 06/06/18 07:57 Dose: 12.5 mls/hr Lorazepam (Ativan) 0.5 mg IVPUSH ONETIME ONE Stop: 06/05/18 12:35 Last Admin: 06/05/18 13:12 Dose: 0.5 mg Lorazepam (Ativan) 1 mg IVPUSH Q4H PRN; Protocol PRN Reason: Withdrawal Symptoms Lorazepam (Ativan) 1 mg IVPUSH ASDIRECTED PRN; Protocol PRN Reason: Withdrawal Symptoms Multivitamins (Thera) 1 each PO ONETIME ONE Stop: 06/05/18 12:31 Last Admin: 06/05/18 13:22 Dose: 1 each Non-Formulary Medication (Amlodipine Besylate [Amlodipine Besylate]) 1 tab PO DAILY [facility] Last Admin: 06/05/18 18:48 Dose: Not Given Non-Formulary Medication (Fluoxetine Hcl) 40 mg PO DAILY [facility] Last Admin: 06/05/18 18:48 Dose: Not Given Non-Formulary Medication (Nebivolol Hcl [Bystolic]) 1 tab PO DAILY [facility] Last Admin: 06/05/18 18:48 Dose: Not Given Non-Formulary Medication (Valsartan [Valsartan]) 1 tab PO DAILY [facility] Last Admin: 06/05/18 18:48 Dose: Not Given Non-Formulary Medication (Valsartan/Hydrochlorothiazide [Valsartan-Hctz 320-25 Mg Tab]) 320 mg PO DAILY TIERA Thiamine HCl (Vitamin B-1) 100 mg IVPUSH ONETIME ONE Stop: 06/05/18 12:16 Last Admin: 06/05/18 12:24 Dose: 100 mg - Exam General: Alert, Oriented, Cooperative HEENT: Pupils Equal Neck: Supple, Trachea Midline Lungs: Clear to Auscultation, Normal Respiratory Effort Cardiovascular: Regular Rate, Regular Rhythm GI/Abdominal Exam: Normal Bowel Sounds, Soft, Non-Tender, No Organomegaly, No Distention Extremities: Normal Inspection, Normal Range of Motion, No Pedal Edema Skin: Warm, Dry, Intact Wound/Incisions: Other (Right great toe on the lateral aspect of great nail is inflamed with eschar approximately area and it is tender to palpation.) Neurological: No New Focal Deficit Psy/Mental Status: Alert, Normal Affect, Normal Mood - Problem List & Annotations (1) Alcohol withdrawal syndrome SNOMED Code(s): 134479802 Code(s): F10.239 - ALCOHOL DEPENDENCE WITH WITHDRAWAL, UNSPECIFIED Status: Acute Current Visit: Yes (2) Alcohol abuse SNOMED Code(s): 25827789 Code(s): F10.10 - ALCOHOL ABUSE, UNCOMPLICATED Status: Acute Current Visit: Yes (3) Anxiety SNOMED Code(s): 36694206 Code(s): F41.9 - ANXIETY DISORDER, UNSPECIFIED Status: Acute Current Visit: Yes (4) HTN (hypertension) SNOMED Code(s): 48731842 Code(s): I10 - ESSENTIAL (PRIMARY) HYPERTENSION Status: Acute Current Visit: Yes (5) Ingrowing toenail with infection SNOMED Code(s): 948732173 Code(s): L60.0 - INGROWING NAIL Status: Acute Current Visit: Yes - Problem List Review Problem List Initiated/Reviewed/Updated: Yes - My Orders Last 24 Hours: My Active Orders 06/05/18 16:09 Patient Status [ADT] Routine Bedrest Bathroom Privileges [RC] ASDIRECTED Height and Weight [RC] 04 Oxygen Therapy [RC] .PRN VTE/DVT Education [RC] BID Vital Signs [RC] Q4HR Consult to Case Management/Profiling Machine Set Up Operator [CONS] Routine Ondansetron [Zofran ODT] 4 mg PO Q4H PRN Ondansetron [Zofran] 4 mg IV Q4H PRN Resuscitation Status Routine 06/05/18 16:10 Cardiac Monitoring [RC] . DIRECTED Intake and Output [RC] 04,16 Pulse Oximetry [RC] CONTINUOUS 06/05/18 18:02 LORazepam [Ativan] 1 - 3 mg IVPUSH ASDIRECTED PRN 06/05/18 Dinner Heart Healthy Diet [DIET] 06/06/18 06:59 Mometasone/Formoterol [Dulera 200-5 MCG] 2 puff IH BID PRN 06/06/18 07:05 amLODIPine [Norvasc] 10 mg PO DAILY 06/06/18 07:07 FLUoxetine [PROzac] 40 mg PO DAILY 06/06/18 07:09 Losartan [Cozaar] 100 mg PO DAILY 06/06/18 07:11 Carvedilol [Coreg] 12.5 mg PO DAILY 06/06/18 07:30 Dextrose 5%-Lactated Ringers 1,000 ml IV ASDIRECTED 06/06/18 09:00 Consult for Substance Abuse [CONS] Routine Enoxaparin [Lovenox] 40 mg SUBCUT DAILY Nystatin [Nystatin Crm] 0 gm TOP DAILY Pantoprazole [ProTONIX] 40 mg PO BID hydroCHLOROthiazide 25 mg PO DAILY 06/06/18 09:01 Consult to Spiritual Care [CONS] Routine 06/06/18 10:47 PT Evaluation and Treatment [CONS] Routine 06/06/18 10:50 OT Evaluation and Treatment [CONS] Routine PT Evaluation and Treatment [CONS] Routine 06/06/18 11:00 cephALEXin [Keflex] 500 mg PO BID 06/06/18 15:00 chlordiazePOXIDE [Librium] 75 mg PO QID 06/06/18 21:00 Folic Acid 1 mg PO BEDTIME Thiamine [Vitamin B-1] 100 mg PO BEDTIME 06/06/18 Breakfast ADA Diabetic [[place] [employer] Diet] [DIET] - Plan Plan:: Alcohol abuse with intent to detox * Continue ICU monitoring with CIWA and Ativan protocol * Librium 75 mg 4 times a day. Consider starting to wean tomorrow. Patient is only 24 hours out from last drink. * Consult mental and spiritual health. * Decrease IV fluids and encourage increase oral intake * Monitor electrolytes closely. * Low seizure risk. Anxiety * Continue on Prozac 40 mg a day. * Consider outpatient therapy. Hypertension * Continue home meds. * Well controlled Chewing tobacco abuse * Patient does not want a patch at this time. Monitor closely. Hypomagnesemia * Mag 1.5. * Give Mag 4gm IV * recheck in the AM Infected right great toe 2/2 ingrown toenail * Start Keflex 500mg QID * Consult Would Care Consult PT and OT for ambulation. Chronic medical conditions: Asthma and possible type 2 diabetes. Monitor respiratory. He is not on any home inhalers. VTE prophylaxis: Lovenox 40 mg QDay Discharged plannin days. Will need outpatient plan to maintain sobriety
[2018-06-06 14:28] LABS: HEMOGLOBIN A1C 5.8 % (4.50-6.20)
[2018-06-06] MEDS: Cephalexin 500 MG Cap PO SCH (17:30)
[2018-06-06] MEDS: Thiamine 100 MG Tab PO SCH (20:56)
[2018-06-06] MEDS: Folic Acid 1 MG Tab PO SCH (20:57)
[2018-06-07] MEDS: Cephalexin 500 MG Cap PO SCH ×4 (00:16→17:17)
[2018-06-07] MEDS: Dextrose 5%-Lactated Ringers 1,000 ML IV SCH ×2 (00:16→08:21)
[2018-06-07] MEDS: chlordiazePOXIDE 25 MG Cap PO SCH ×3 (07:51→19:18)
[2018-06-07] MEDS: Hydrochlorothiazide 25 MG Tab PO SCH (08:13)
[2018-06-07] MEDS: amLODIPine 10 MG Tab PO SCH (08:13)
[2018-06-07] MEDS: FLUoxetine 20 MG Cap PO SCH (08:13)
[2018-06-07] MEDS: Losartan 100 MG Tab PO SCH (08:14)
[2018-06-07] MEDS: Enoxaparin 40 MG/0.4 ML Syringe SUBCUT SCH (08:14)
[2018-06-07] MEDS: Pantoprazole 40 MG Tab.CR PO SCH ×2 (08:14→20:30)
[2018-06-07] MEDS: Carvedilol 12.5 MG Tab PO SCH (08:16)
[2018-06-07] MEDS: Nystatin Crm 30 GM Tube TOP SCH (08:16)
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
[2018-06-07] MEDS ORDERED: chlordiazePOXIDE 25 MG Cap PO PRN (14:54)
[2018-06-07] MEDS ORDERED: chlordiazePOXIDE 25 MG Cap PO SCH (15:00)
--- NOTE | 2018-06-07 15:06 | PCM.PN ---
- General Info Date of Service: 06/07/18 Admission Dx/Problem (Free Text): Admission Diagnosis/Problem Admission Diagnosis/Problem Alcohol withdrawal syndrome Subjective Update: Patient had uneventful evening. CIWA scores have been 0. This morning he has no complaints. Pt. has a good appetite. Was seen by Artie Chaney LAC and he agrees to outpatient therapy. No other current issues. - Review of Systems General: Reports: No Symptoms HEENT: Reports: No Symptoms Pulmonary: Reports: No Symptoms Cardiovascular: Reports: No Symptoms Gastrointestinal: Reports: No Symptoms Neurological: Reports: No Symptoms. Denies: Dizziness, Headache Psychiatric: Reports: No Symptoms. Denies: Confusion, Depression - Patient Data Vitals - Most Recent: Last Vital Signs Temp 97.7 F 06/07/18 12:00 Pulse 80 06/07/18 12:00 Resp 18 06/07/18 12:00 BP 97/49 L 06/07/18 12:00 Pulse Ox 94 L 06/07/18 12:00 Weight - Most Recent: 352 lb 0.017 oz I&O - Last 24 Hours: Intake & Output 06/07/18 06/07/18 06/07/18 06:59 14:59 22:59 Intake Total 1780 920 Output Total 1150 Balance 1780 -230 Lab Results Last 24 Hours: Laboratory Results - last 24 hr 06/07/18 06/07/18 Range/Units 05:50 05:50 WBC 7.27 (4.23-9.07) K/mm3 RBC 4.61 L (4.63-6.08) M/mm3 Hgb 12.5 L (13.7-17.5) gm/L Hct 37.7 L (40.1-51.0) % MCV 81.8 (79.0-92.2) fl MCH 27.1 (25.7-32.2) pg MCHC 33.2 (32.2-35.5) g/dl RDW Std Deviation 46.7 H (35.1-43.9) fL Plt Count 165 (163-337) K/mm3 MPV 8.9 L (9.4-12.3) fl Neut % (Auto) 62.3 (34.0-67.9) % Lymph % (Auto) 24.2 (21.8-53.1) % Sevier % (Auto) 6.9 (5.3-12.2) % Eos % (Auto) 5.4 (0.8-7.0) Baso % (Auto) 0.6 (0.1-1.2) % Neut # (Auto) 4.54 (1.78-5.38) K/mm3 Lymph # (Auto) 1.76 (1.32-3.57) K/mm3 [place] # (Auto) 0.50 (0.30-0.82) K/mm3 Eos # (Auto) 0.39 (0.04-0.54) K/mm3 Baso # (Auto) 0.04 (0.01-0.08) K/mm3 Sodium 138 (136-145) mEq/L Potassium 3.6 (3.5-5.1) mEq/L Chloride 102 (98-107) mEq/L Carbon Dioxide 28 (21-32) mEq/L Anion Gap 11.6 (5-15) BUN 12 (7-18) mg/dL Creatinine 1.1 (0.7-1.3) mg/dL Est Cr Clr Drug Dosing 101.39 mL/min Estimated GFR (MDRD) > 60 (>60) mL/min BUN/Creatinine Ratio 10.9 L (14-18) Glucose 99 (74-106) mg/dL Calcium 8.5 (8.5-10.1) mg/dL Phosphorus 4.4 (2.6-4.7) mg/dL Magnesium 2.0 (1.8-2.4) mg/dl Total Bilirubin 0.8 (0.2-1.0) mg/dL AST 46 H (15-37) U/L ALT 52 (16-63) U/L Alkaline Phosphatase 101 (46-116) U/L Total Protein 6.3 L (6.4-8.2) g/dl Albumin 3.1 L (3.4-5.0) g/dl Globulin 3.2 gm/dL Albumin/Globulin Ratio 1.0 (1-2) Med Orders - Current: Current Medications Amlodipine Besylate (Norvasc) 10 mg PO DAILY [facility] Last Admin: 06/07/18 08:13 Dose: 10 mg Carvedilol (Coreg) 12.5 mg PO DAILY [facility] Last Admin: 06/07/18 08:16 Dose: 12.5 mg Cephalexin (Keflex) 500 mg PO Q6HR [facility] Last Admin: 06/07/18 13:29 Dose: 500 mg Chlordiazepoxide HCl (Librium) 25 mg PO Q6H [facility] Chlordiazepoxide HCl (Librium) 25 mg PO Q2H PRN PRN Reason: Withdrawal Symptoms Enoxaparin Sodium (Lovenox) 40 mg SUBCUT DAILY [facility] Last Admin: 06/07/18 08:14 Dose: 40 mg Fluoxetine HCl (Prozac) 40 mg PO DAILY [facility] Last Admin: 06/07/18 08:13 Dose: 40 mg Folic Acid (Folic Acid) 1 mg PO BEDTIME [facility] Last Admin: 06/06/18 20:57 Dose: 1 mg Hydrochlorothiazide (Hydrochlorothiazide) 25 mg PO DAILY [facility] Last Admin: 06/07/18 08:13 Dose: 25 mg Dextrose/Lactated Ringer's (Dextrose 5%-Lactated Ringers) 1,000 mls @ 125 mls/ hr IV ASDIRECTED [facility] Last Admin: 06/07/18 08:21 Dose: 125 mls/hr Lorazepam (Ativan) 1 - 3 mg IVPUSH ASDIRECTED PRN; Protocol PRN Reason: Withdrawal Symptoms Last Admin: 06/05/18 20:12 Dose: 1 mg Losartan Potassium (Cozaar) 100 mg PO DAILY [facility] Last Admin: 06/07/18 08:14 Dose: 100 mg Mometasone Furoate/Formoterol Fumar (Dulera 200-5 Mcg) 2 puff IH BID PRN PRN Reason: Shortness of Breath Nystatin (Nystatin Crm) 0 gm TOP DAILY [facility] Last Admin: 06/07/18 08:16 Dose: Not Given Ondansetron HCl (Zofran Odt) 4 mg PO Q4H PRN PRN Reason: nausea, able to take PO Last Admin: 06/06/18 12:03 Dose: 4 mg Ondansetron HCl (Zofran) 4 mg IV Q4H PRN PRN Reason: Nausea/Vomiting Last Admin: 06/05/18 22:28 Dose: 4 mg Pantoprazole Sodium (Protonix) 40 mg PO BID [facility] Last Admin: 06/07/18 08:14 Dose: 40 mg Thiamine HCl (Vitamin B-1) 100 mg PO BEDTIME [facility] Last Admin: 06/06/18 20:56 Dose: 100 mg Discontinued Medications Cephalexin (Keflex) 500 mg PO BID [facility] Last Admin: 06/06/18 11:36 Dose: 500 mg Chlordiazepoxide HCl (Librium) 100 mg PO TID [facility] Last Admin: 06/06/18 08:42 Dose: 100 mg Chlordiazepoxide HCl (Librium) 75 mg PO QID [facility] Last Admin: 06/06/18 20:56 Dose: 75 mg Chlordiazepoxide HCl (Librium) 50 mg PO Q6H [facility] Last Admin: 06/07/18 13:28 Dose: 50 mg Folic Acid (Folic Acid) 1 mg PO ONETIME ONE Stop: 06/05/18 12:31 Last Admin: 06/05/18 13:33 Dose: Not Given Folic Acid (Folic Acid) 1 mg PO ONETIME ONE Stop: 06/05/18 13:33 Last Admin: 06/05/18 13:33 Dose: 1 mg Sodium Chloride (Normal Saline) 1,000 mls @ 999 mls/hr IV ONETIME ONE Stop: 06/05/18 12:25 Last Admin: 06/05/18 12:01 Dose: 999 mls/hr Thiamine HCl 100 mg/ Sodium (Chloride) 101 mls @ 202 mls/hr IV ONETIME ONE Stop: 06/05/18 11:58 Last Admin: 06/05/18 18:49 Dose: Not Given Sodium Chloride (Normal Saline) 1,000 mls @ 999 mls/hr IV ONETIME ONE Stop: 06/05/18 13:41 Last Admin: 06/05/18 13:11 Dose: 999 mls/hr Sodium Chloride (Normal Saline) 1,000 mls @ 999 mls/hr IV ONETIME ONE Stop: 06/05/18 15:43 Last Admin: 06/05/18 15:34 Dose: 999 mls/hr Lactated Ringer's (Ringers, Lactated) 1,000 mls @ 200 mls/hr IV ASDIRECTED [facility] Last Admin: 06/06/18 03:45 Dose: 200 mls/hr Magnesium Sulfate 4 gm/ Premix 50 mls @ 12.5 mls/hr IV ONETIME ONE Stop: 06/06/18 11:17 Last Admin: 06/06/18 07:57 Dose: 12.5 mls/hr Lorazepam (Ativan) 0.5 mg IVPUSH ONETIME ONE Stop: 06/05/18 12:35 Last Admin: 06/05/18 13:12 Dose: 0.5 mg Lorazepam (Ativan) 1 mg IVPUSH Q4H PRN; Protocol PRN Reason: Withdrawal Symptoms Lorazepam (Ativan) 1 mg IVPUSH ASDIRECTED PRN; Protocol PRN Reason: Withdrawal Symptoms Multivitamins (Thera) 1 each PO ONETIME ONE Stop: 06/05/18 12:31 Last Admin: 06/05/18 13:22 Dose: 1 each Non-Formulary Medication (Amlodipine Besylate [Amlodipine Besylate]) 1 tab PO DAILY [facility] Last Admin: 06/05/18 18:48 Dose: Not Given Non-Formulary Medication (Fluoxetine Hcl) 40 mg PO DAILY [facility] Last Admin: 06/05/18 18:48 Dose: Not Given Non-Formulary Medication (Nebivolol Hcl [Bystolic]) 1 tab PO DAILY [facility] Last Admin: 06/05/18 18:48 Dose: Not Given Non-Formulary Medication (Valsartan [Valsartan]) 1 tab PO DAILY [facility] Last Admin: 06/05/18 18:48 Dose: Not Given Non-Formulary Medication (Valsartan/Hydrochlorothiazide [Valsartan-Hctz 320-25 Mg Tab]) 320 mg PO DAILY [facility] Thiamine HCl (Vitamin B-1) 100 mg IVPUSH ONETIME ONE Stop: 06/05/18 12:16 Last Admin: 06/05/18 12:24 Dose: 100 mg - Exam General: Alert, Oriented HEENT: Pupils Equal, Pupils Reactive Neck: Supple Lungs: Clear to Auscultation, Normal Respiratory Effort, Wheezing (Mild bibasilar) Cardiovascular: Regular Rate, Regular Rhythm Skin: Warm, Dry, Intact Psy/Mental Status: Alert, Normal Affect, Normal Mood - Problem List & Annotations (1) Alcohol withdrawal syndrome SNOMED Code(s): 824361280 Code(s): F10.239 - ALCOHOL DEPENDENCE WITH WITHDRAWAL, UNSPECIFIED Status: Acute Current Visit: Yes (2) Alcohol abuse SNOMED Code(s): 92159594 Code(s): F10.10 - ALCOHOL ABUSE, UNCOMPLICATED Status: Acute Current Visit: Yes (3) Anxiety SNOMED Code(s): 16231442 Code(s): F41.9 - ANXIETY DISORDER, UNSPECIFIED Status: Acute Current Visit: Yes (4) HTN (hypertension) SNOMED Code(s): 47894662 Code(s): I10 - ESSENTIAL (PRIMARY) HYPERTENSION Status: Acute Current Visit: Yes (5) Ingrowing toenail with infection SNOMED Code(s): 029851647 Code(s): L60.0 - INGROWING NAIL Status: Acute Current Visit: Yes - Problem List Review Problem List Initiated/Reviewed/Updated: Yes - My Orders Last 24 Hours: My Active Orders 06/06/18 18:00 cephALEXin [Keflex] 500 mg PO Q6HR 06/06/18 21:00 Folic Acid 1 mg PO BEDTIME Thiamine [Vitamin B-1] 100 mg PO BEDTIME 06/07/18 11:20 Admission Status [Patient Status] [ADT] Routine 06/07/18 14:54 chlordiazePOXIDE [Librium] 25 mg PO Q2H PRN 06/07/18 15:00 chlordiazePOXIDE [Librium] 25 mg PO Q6H - Plan Plan:: Alcohol abuse with intent to detox * Transfer to [facility] status * Decrease Librium to 50 mg every 6 hours times two then 25 mg every 6 hours with PRN Librium. * Agrees to OP rehab care * Low seizure risk. Anxiety * Continue on Prozac 40 mg a day. * Consider outpatient therapy. Hypertension * Continue home meds. * Well controlled Chewing tobacco abuse * Patient does not want a patch at this time. Monitor closely. Hypomagnesemia * Normal mag this AM Infected right great toe 2/2 ingrown toenail * Continue Keflex 500mg QID * Treatment as OP Consult PT and OT for ambulation. Chronic medical conditions: Asthma and possible type 2 diabetes. Monitor respiratory. He is not on any home inhalers. VTE prophylaxis: Lovenox 40 mg QDay Discharged plannin-2 days.
[2018-06-07] MEDS: Thiamine 100 MG Tab PO SCH (20:29)
[2018-06-07] MEDS: Folic Acid 1 MG Tab PO SCH (20:30)
[2018-06-08] MEDS: Cephalexin 500 MG Cap PO SCH ×3 (00:11→12:07)
[2018-06-08] MEDS: chlordiazePOXIDE 25 MG Cap PO SCH ×2 (00:11→06:17)
[2018-06-08] MEDS: Carvedilol 12.5 MG Tab PO SCH (08:13)
[2018-06-08] MEDS: FLUoxetine 20 MG Cap PO SCH (08:13)
[2018-06-08] MEDS: Hydrochlorothiazide 25 MG Tab PO SCH (08:13)
[2018-06-08] MEDS: Losartan 100 MG Tab PO SCH (08:14)
[2018-06-08] MEDS: amLODIPine 10 MG Tab PO SCH (08:14)
[2018-06-08] MEDS: Pantoprazole 40 MG Tab.CR PO SCH (08:14)
[2018-06-08] MEDS: Enoxaparin 40 MG/0.4 ML Syringe SUBCUT SCH (08:15)
[2018-06-08] MEDS: Nystatin Crm 30 GM Tube TOP SCH (08:21)
--- NOTE | 2018-06-08 17:12 | PCM.DCSUM1 ---
Discharge Summary - Hospital Course Brief History: This 28-year-old male was brought in by EMS secondary to alcohol intoxication. Patient states that he "got caught" drinking and his family and friends want him to go through detox. Patient states that he becomes socially withdrawn and his friends and noticed the start strengthening again. He has a long 5 to six-year history of heavy drinking. Or the last year to year and a half he has been drinking 1.75 L of 60 proof alcohol for several days in a row and then will stop drinking cold turkey. He states when he does he does get shaky but he does not have any seizures or other repercussions. Previous to a urinary half ago he was a daily drinker and did go through rehabilitation. ER note states that he has been drinking for 11 years. 2 weeks ago he did discuss this and his anxiety with his primary care doctor Dr. Bauer and he was set up with [facility] mental [facility] clinic. He went to the walk in screening and never followed up for care. Patient has been drinking for the last 6 days and his last drink was this morning. He had 8 ounces of spiced rum. He did state he vomited one time this morning. Patient denies any abdominal pain, chest pain, shortness of breath, hematochezia, melena, black stools, bloody stools. He denies any hematemesis. When asked if he wanted to go through rehabilitation he stated, "I want to quit but I am not sure I am ready to.". Patient states he is also on metformin for diabetes. He also states that last month he had a hemoglobin A1c done which was 5.2. He is on medication for blood pressure and anxiety. Diagnosis: Stroke: No - Discharge Data Discharge Date: 06/08/18 Discharge Disposition: Home, Self-Care 01 Condition: Good - Discharge Diagnosis/Problem(s) (1) Alcohol withdrawal syndrome SNOMED Code(s): 969393614 ICD Code: F10.239 - ALCOHOL DEPENDENCE WITH WITHDRAWAL, UNSPECIFIED Status : Acute (2) Alcohol abuse SNOMED Code(s): 57753963 ICD Code: F10.10 - ALCOHOL ABUSE, UNCOMPLICATED Status: Acute (3) Anxiety SNOMED Code(s): 69221862 ICD Code: F41.9 - ANXIETY DISORDER, UNSPECIFIED Status: Acute (4) HTN (hypertension) SNOMED Code(s): 11613761 ICD Code: I10 - ESSENTIAL (PRIMARY) HYPERTENSION Status: Acute (5) Ingrowing toenail with infection SNOMED Code(s): 209291672 ICD Code: L60.0 - INGROWING NAIL Status: Acute - Patient Summary/Data Consults: Consultations 06/05/18 16:09 Consult to Case Management/Patient Transport Officer [CONS] Routine 06/06/18 09:00 Consult for Substance Abuse [CONS] Routine 06/06/18 09:01 Consult to Spiritual Care [CONS] Routine 06/06/18 10:47 PT Evaluation and Treatment [CONS] Routine 06/06/18 10:50 OT Evaluation and Treatment [CONS] Routine PT Evaluation and Treatment [CONS] Routine - Patient Instructions Diet: Heart Healthy Diet Activity: As Tolerated Driving: Do Not Drive (May resume driving 2 days after last Librium.) Showering/Bathing: May Shower Notify Provider of: Increased Pain, Nausea and/or Vomiting - Discharge Plan *PRESCRIPTION DRUG MONITORING PROGRAM REVIEWED*: Not Applicable *COPY OF PRESCRIPTION DRUG MONITORING REPORT IN PATIENT MELANIA: Not Applicable Prescriptions/Med Rec: cephALEXin [Keflex] 500 mg PO QID 5 Days #20 cap chlordiazePOXIDE [Librium] 25 mg PO Q8H PRN #2 cap PRN Reason: Withdrawal Symptoms Folic Acid 1 mg PO BEDTIME #30 tablet Thiamine [Vitamin B-1] 100 mg PO BEDTIME #30 tablet Home Medications: Home Meds FLUoxetine HCl [Fluoxetine] 40 mg PO DAILY 05/15/18 [History] Nebivolol HCl [Bystolic] 20 mg PO DAILY 05/15/18 [History] amLODIPine Besylate [Amlodipine Besylate] 10 mg PO DAILY 05/15/18 [History] Budesonide/Formoterol [Symbicort 160-4.5 MCG] 1 puff INH ASDIRECTED PRN [History] Nystatin 1 applic TOP DAILY 06/05/18 [History] Omeprazole 40 mg PO BID 06/05/18 [History] Valsartan/Hydrochlorothiazide [Valsartan-Hctz 320-25 mg Tab] 320 mg PO DAILY 04/24 [History] metFORMIN [Glucophage XR] 500 mg PO DAILY 06/05/18 [History] Folic Acid 1 mg PO BEDTIME #30 tablet 06/08/18 [Rx] Thiamine [Vitamin B-1] 100 mg PO BEDTIME #30 tablet 06/08/18 [Rx] cephALEXin [Keflex] 500 mg PO QID 5 Days #20 cap 06/08/18 [Rx] chlordiazePOXIDE [Librium] 25 mg PO Q8H PRN #2 cap 06/08/18 [Rx] hydroCHLOROthiazide [Hydrochlorothiazide] 25 mg PO DAILY tablet 06/08/18 [Rx] Patient Handouts: What You Need to Know About Smokeless Tobacco Use Referrals: João Mazariegos MD [Primary Care Provider] - - Discharge Summary/Plan Comment DC Time >30 min.: Yes Discharge Summary/Plan Comment: Alcohol abuse * Patient had uneventful course with scheduled Librium wean down to as needed. * Patient has agreed to outpatient therapy and will have alcohol testing on Monday * He'll be sent home with Librium 25 mg 1 tab every 8 hours when necessary withdrawal symptoms. He will only get 2 tablets in his mother will help monitor the dose. He was counseled that he should not take this medication and drink. He assured me that all alcohol is out of the house because his family took it out. His mother was with him and she confirmed this. After 2 days if he has not used the Librium and will be destroyed. Anxiety * Continue on Prozac 40 mg a day. * outpatient therapy. Hypertension * Continue home meds. * Well controlled Hypomagnesemia * Resolved Infected right great toe 2/2 ingrown toenail * Continue Keflex 500mg QID * Consider Treatment as OP - General Info Date of Service: 06/08/18 Admission Dx/Problem (Free Text: Admission Diagnosis/Problem Admission Diagnosis/Problem Alcohol withdrawal syndrome Subjective Update: Patient had uneventful evening. CIWA scores have been 0. This morning he has no complaints. Pt. has a good appetite. Was seen by Artie Chaney LAC and he agrees to outpatient therapy. No other current issues. Patient was switched over to as needed Librium. He has not needed any additional Librium today. - Review of Systems General: Reports: No Symptoms HEENT: Reports: No Symptoms Pulmonary: Reports: No Symptoms Cardiovascular: Reports: No Symptoms Gastrointestinal: Reports: No Symptoms Musculoskeletal: Reports: No Symptoms Neurological: Reports: No Symptoms Psychiatric: Reports: Anxiety - Patient Data Vitals - Most Recent: Last Vital Signs Temp 97.1 F 06/08/18 08:12 Pulse 80 06/08/18 08:13 Resp 17 06/08/18 08:12 BP 139/85 06/08/18 08:14 Pulse Ox 94 L 06/08/18 08:12 Weight - Most Recent: 352 lb 9.6 oz I&O - Last 24 hours: Intake & Output 06/08/18 06/08/18 06/08/18 06:59 14:59 22:59 Intake Total 800 620 Balance 800 620 Med Orders - Current: Current Medications Discontinued Medications Amlodipine Besylate (Norvasc) 10 mg PO DAILY [facility] Last Admin: 06/08/18 08:14 Dose: 10 mg Carvedilol (Coreg) 12.5 mg PO DAILY [facility] Last Admin: 06/08/18 08:13 Dose: 12.5 mg Cephalexin (Keflex) 500 mg PO BID [facility] Last Admin: 06/06/18 11:36 Dose: 500 mg Cephalexin (Keflex) 500 mg PO Q6HR [facility] Last Admin: 06/08/18 12:07 Dose: 500 mg Chlordiazepoxide HCl (Librium) 100 mg PO TID [facility] Last Admin: 06/06/18 08:42 Dose: 100 mg Chlordiazepoxide HCl (Librium) 75 mg PO QID [facility] Last Admin: 06/06/18 20:56 Dose: 75 mg Chlordiazepoxide HCl (Librium) 50 mg PO Q6H [facility] Last Admin: 06/07/18 13:28 Dose: 50 mg Chlordiazepoxide HCl (Librium) 25 mg PO Q6H [facility] Last Admin: 06/07/18 15:19 Dose: Not Given Chlordiazepoxide HCl (Librium) 25 mg PO Q2H PRN PRN Reason: Withdrawal Symptoms Chlordiazepoxide HCl (Librium) 25 mg PO Q6H [facility] Last Admin: 06/08/18 06:17 Dose: 25 mg Enoxaparin Sodium (Lovenox) 40 mg SUBCUT DAILY [facility] Last Admin: 06/08/18 08:15 Dose: 40 mg Fluoxetine HCl (Prozac) 40 mg PO DAILY [facility] Last Admin: 06/08/18 08:13 Dose: 40 mg Folic Acid (Folic Acid) 1 mg PO ONETIME ONE Stop: 06/05/18 12:31 Last Admin: 06/05/18 13:33 Dose: Not Given Folic Acid (Folic Acid) 1 mg PO ONETIME ONE Stop: 06/05/18 13:33 Last Admin: 06/05/18 13:33 Dose: 1 mg Folic Acid (Folic Acid) 1 mg PO BEDTIME [facility] Last Admin: 06/07/18 20:30 Dose: 1 mg Hydrochlorothiazide (Hydrochlorothiazide) 25 mg PO DAILY [facility] Last Admin: 06/08/18 08:13 Dose: 25 mg Sodium Chloride (Normal Saline) 1,000 mls @ 999 mls/hr IV ONETIME ONE Stop: 06/05/18 12:25 Last Admin: 06/05/18 12:01 Dose: 999 mls/hr Thiamine HCl 100 mg/ Sodium (Chloride) 101 mls @ 202 mls/hr IV ONETIME ONE Stop: 06/05/18 11:58 Last Admin: 06/05/18 18:49 Dose: Not Given Sodium Chloride (Normal Saline) 1,000 mls @ 999 mls/hr IV ONETIME ONE Stop: 06/05/18 13:41 Last Admin: 06/05/18 13:11 Dose: 999 mls/hr Sodium Chloride (Normal Saline) 1,000 mls @ 999 mls/hr IV ONETIME ONE Stop: 06/05/18 15:43 Last Admin: 06/05/18 15:34 Dose: 999 mls/hr Lactated Ringer's (Ringers, Lactated) 1,000 mls @ 200 mls/hr IV ASDIRECTED [facility] Last Admin: 06/06/18 03:45 Dose: 200 mls/hr Dextrose/Lactated Ringer's (Dextrose 5%-Lactated Ringers) 1,000 mls @ 125 mls/ hr IV ASDIRECTED [facility] Last Admin: 06/07/18 08:21 Dose: 125 mls/hr Magnesium Sulfate 4 gm/ Premix 50 mls @ 12.5 mls/hr IV ONETIME ONE Stop: 06/06/18 11:17 Last Admin: 06/06/18 07:57 Dose: 12.5 mls/hr Lorazepam (Ativan) 0.5 mg IVPUSH ONETIME ONE Stop: 06/05/18 12:35 Last Admin: 06/05/18 13:12 Dose: 0.5 mg Lorazepam (Ativan) 1 mg IVPUSH Q4H PRN; Protocol PRN Reason: Withdrawal Symptoms Lorazepam (Ativan) 1 mg IVPUSH ASDIRECTED PRN; Protocol PRN Reason: Withdrawal Symptoms Lorazepam (Ativan) 1 - 3 mg IVPUSH ASDIRECTED PRN; Protocol PRN Reason: Withdrawal Symptoms Last Admin: 06/05/18 20:12 Dose: 1 mg Losartan Potassium (Cozaar) 100 mg PO DAILY [facility] Last Admin: 06/08/18 08:14 Dose: 100 mg Mometasone Furoate/Formoterol Fumar (Dulera 200-5 Mcg) 2 puff IH BID PRN PRN Reason: Shortness of Breath Multivitamins (Thera) 1 each PO ONETIME ONE Stop: 06/05/18 12:31 Last Admin: 06/05/18 13:22 Dose: 1 each Non-Formulary Medication (Amlodipine Besylate [Amlodipine Besylate]) 1 tab PO DAILY [facility] Last Admin: 06/05/18 18:48 Dose: Not Given Non-Formulary Medication (Fluoxetine Hcl) 40 mg PO DAILY [facility] Last Admin: 06/05/18 18:48 Dose: Not Given Non-Formulary Medication (Nebivolol Hcl [Bystolic]) 1 tab PO DAILY [facility] Last Admin: 06/05/18 18:48 Dose: Not Given Non-Formulary Medication (Valsartan [Valsartan]) 1 tab PO DAILY [facility] Last Admin: 06/05/18 18:48 Dose: Not Given Non-Formulary Medication (Valsartan/Hydrochlorothiazide [Valsartan-Hctz 320-25 Mg Tab]) 320 mg PO DAILY [facility] Nystatin (Nystatin Crm) 0 gm TOP DAILY [facility] Last Admin: 06/08/18 08:21 Dose: Not Given Ondansetron HCl (Zofran Odt) 4 mg PO Q4H PRN PRN Reason: nausea, able to take PO Last Admin: 06/06/18 12:03 Dose: 4 mg Ondansetron HCl (Zofran) 4 mg IV Q4H PRN PRN Reason: Nausea/Vomiting Last Admin: 06/05/18 22:28 Dose: 4 mg Pantoprazole Sodium (Protonix) 40 mg PO BID [facility] Last Admin: 06/08/18 08:14 Dose: 40 mg Thiamine HCl (Vitamin B-1) 100 mg IVPUSH ONETIME ONE Stop: 06/05/18 12:16 Last Admin: 06/05/18 12:24 Dose: 100 mg Thiamine HCl (Vitamin B-1) 100 mg PO BEDTIME [facility] Last Admin: 06/07/18 20:29 Dose: 100 mg - Exam Quality Assessment: Denies: Supplemental Oxygen General: Reports: Alert, Oriented HEENT: Reports: Pupils Equal Neck: Reports: Supple Lungs: Reports: Clear to Auscultation, Normal Respiratory Effort Cardiovascular: Reports: Regular Rate, Regular Rhythm GI/Abdominal Exam: Normal Bowel Sounds, Soft, Non-Tender, No Distention Extremities: Normal Inspection, Normal Range of Motion, Non-Tender, No Pedal Edema, Normal Capillary Refill Skin: Reports: Warm, Dry, Intact, Other (Right great toe ingrown nail infection is improved with less tenderness and redness.) Psy/Mental Status: Reports: Alert, Normal Affect, Normal Mood
== END 2018-06-08 14:40 | disposition home or self-care (01) | DRG 897 ==
LOC: JD.ED 11:05 → JD.ICU 15:08
PROVIDERS: ADMIT Family Medicine; ATTEND Family Medicine
DX: F10.230 Alcohol dependence with withdrawal, uncomplicated (principal); F10.220 Alcohol dependence with intoxication, uncomplicated; I10 Essential (primary) hypertension; J45.909 Unspecified asthma, uncomplicated; F32.9 Major depressive disorder, single episode, unspecified; F41.9 Anxiety disorder, unspecified; E11.9 Type 2 diabetes mellitus without complications; Y90.0 Blood alcohol level of less than 20 mg/100 ml; L60.0 Ingrowing nail; E83.42 Hypomagnesemia; Z79.899 Other long term (current) drug therapy
CPT/HCPCS: 36415; 80053; 80306; 83036; 83690; 83735; 84100; 85025; 96361; 96374; 96375; 97161-GP; 97165-GO; 99285; 99285-25; A9270-GY; G0480; J1650; J2060; J2405; J3411; J3475; J7040; J7042; J7120

== ENCOUNTER 2019-02-13 10:41 | Emergency (ER) | payer MEDICAID ==
[2019-02-13] MEDS ORDERED: Metoclopramide 10 MG/2 ML SDV IVPUSH ONE (12:37)
[2019-02-13] MEDS ORDERED: Sodium Chloride 0.9% 10 ML Syringe FLUSH PRN (12:37)
[2019-02-13] MEDS ORDERED: LORazepam 2 MG/ML SDV IVPUSH ONE (12:37)
[2019-02-13] MEDS: Sodium Chloride 0.9% 1,000 ML IV ONE ×2 (12:48→14:58)
--- NOTE | 2019-02-13 12:49 | EDM.PDOC ---
ED HPI GENERAL MEDICAL PROBLEM - General Chief Complaint: Drug or Alcohol Abuse Stated Complaint: DETOX Time Seen by Provider: 02/13/19 11:52 Source of Information: Reports: Patient, RN Notes Reviewed History Limitations: Reports: No Limitations - History of Present Illness INITIAL COMMENTS - FREE TEXT/NARRATIVE: Patient is a 29-year-old male who presents to the ED for evaluation of alcohol issues. Patient states that he has issues with alcohol, but he did get sober, and has been dry since September. But over the last week, he went on a 5-day binge of drinking, where he drinks 1.75 L of rum per day. Patient was initially brought by a friend into the ER for evaluation. But this friend is no longer there when I examined or questioned him. Patient does not note any specific event that would have happened, that would have led him to drinking again. He notes that his last drink was around 9 AM this morning. He states he has nausea , but no vomiting. He denies pain anywhere. He states he is having generalized shakiness, no chest pain or shortness of breath. He notes that he had a diagnosis of diabetes in the past, but he is unmedicated or not taking medications for this. He also has hypertension, and has not taken his blood pressure medications in a few days. His blood pressure at time of triage was 146/85, this is not worrisome at this time. He is diaphoretic, and does appear to be uncomfortable on the ER cot. He denies any hx/o alcohol induced seizures. - Related Data Allergies Allergy/AdvReac Type Severity Reaction Status Date / Time No Known Allergies Allergy Verified 02/13/19 11:31 Home Meds: Home Meds Nebivolol HCl [Bystolic] 20 mg PO DAILY 05/15/18 [History] amLODIPine Besylate [Amlodipine Besylate] 10 mg PO DAILY 05/15/18 [History] Valsartan/Hydrochlorothiazide [Valsartan-Hctz 320-25 mg Tab] 320 mg PO DAILY 04/24 [History] Past Medical History HEENT History: Reports: None Cardiovascular History: Reports: Hypertension Respiratory History: Reports: Asthma Gastrointestinal History: Reports: None Genitourinary History: Reports: None Musculoskeletal History: Reports: None Neurological History: Reports: None Other Neuro History: is going through withdrawals last drink 0915 2 shots of rum (shooters) Psychiatric History: Reports: Anxiety, Depression Other Psychiatric History: ETOH abuse Endocrine/Metabolic History: Reports: Diabetes, Type II Hematologic History: Reports: None Immunologic History: Reports: None Oncologic (Cancer) History: Reports: None Dermatologic History: Reports: None - Infectious Disease History Infectious Disease History: Reports: None - Past Surgical History Head Surgeries/Procedures: Reports: None Social & Family History - Family History Family Medical History: Noncontributory - Tobacco Use Smoking Status *Q: Never Smoker - Caffeine Use Caffeine Use: Reports: Soda - Recreational Drug Use Recreational Drug Use: No ED ROS GENERAL - Review of Systems Review Of Systems: See Below Constitutional: Denies: Fever, Chills HEENT: Reports: No Symptoms Respiratory: Denies: Shortness of Breath, Cough Cardiovascular: Reports: Blood Pressure Problem (hx/of htn, not increased from baseline, hasn't taken meds in a few days). Denies: Chest Pain, Edema GI/Abdominal: Reports: Nausea. Denies: Abdominal Pain, Constipation, Diarrhea, Vomiting : Denies: Dysuria Neurological: Denies: Headache Psychiatric: Reports: Anxiety (pt feels shaky) ED EXAM, GENERAL - Physical Exam Exam: See Below Exam Limited By: No Limitations General Appearance: Alert, WD/WN, No Apparent Distress (pt is diaphoretic in room), Obese Eye Exam: Bilateral Eye: EOMI, Normal Inspection, PERRL Throat/Mouth: Normal Inspection, Normal Lips, Normal Teeth, Normal Gums, Normal Oropharynx, Normal Voice, No Airway Compromise Head: Atraumatic, Normocephalic Neck: Normal Inspection Respiratory/Chest: No Respiratory Distress, Lungs Clear, Normal Breath Sounds, No Accessory Muscle Use, Chest Non-Tender Cardiovascular: Normal Peripheral Pulses, Regular Rate, Rhythm, No Edema, No Murmur Peripheral Pulses: 3+: Radial (L), Radial (R) GI/Abdominal: Normal Bowel Sounds, Soft, Non-Tender, No Distention, No Mass Extremities: Normal Inspection, Normal Capillary Refill Neurological: Alert, Oriented, Normal Cognition, No Motor/Sensory Deficits Psychiatric: Normal Affect, Normal Mood Skin Exam: Warm, Dry, Intact, Normal Color, No Rash Course - Vital Signs Last Recorded V/S: Last Vital Signs Temp 98.9 F 02/13/19 11:02 Pulse 113 H 02/13/19 11:02 Resp 16 02/13/19 11:02 BP 146/85 H 02/13/19 11:02 Pulse Ox 96 02/13/19 11:02 - Orders/Labs/Meds Orders: Active Orders 24 hr Category Date Time Status Peripheral IV Care [RC] . DIRECTED Care 02/13/19 12:37 Active Sodium Chloride 0.9% [Saline Flush] Med 02/13/19 12:37 Active 10 ml FLUSH ASDIRECTED PRN Peripheral IV Insertion Adult [OM.PC] Stat Oth 02/13/19 12:37 Ordered Medication Orders Sodium Chloride (Saline Flush) 10 ml FLUSH ASDIRECTED PRN PRN Reason: Keep Vein Open Last Admin: 02/13/19 12:47 Dose: 10 ml Labs: Laboratory Tests 02/13/19 02/13/19 02/13/19 Range/Units 13:21 14:00 14:00 WBC 14.95 H (4.23-9.07) K/mm3 RBC 5.76 (4.63-6.08) M/mm3 Hgb 15.1 D (13.7-17.5) gm/dl Hct 43.4 (40.1-51.0) % MCV 75.3 L (79.0-92.2) fl MCH 26.2 (25.7-32.2) pg MCHC 34.8 (32.2-35.5) g/dl RDW Std Deviation 39.7 (35.1-43.9) fL Plt Count 165 (163-337) K/mm3 MPV 8.2 L (9.4-12.3) fl Neut % (Auto) 85.3 H (34.0-67.9) % Lymph % (Auto) 8.3 L (21.8-53.1) % Crisp % (Auto) 4.7 L (5.3-12.2) % Eos % (Auto) 0.9 (0.8-7.0) Baso % (Auto) 0.4 (0.1-1.2) % Neut # (Auto) 12.76 H (1.78-5.38) K/mm3 Lymph # (Auto) 1.24 L (1.32-3.57) K/mm3 Crisp # (Auto) 0.70 (0.30-0.82) K/mm3 Eos # (Auto) 0.13 (0.04-0.54) K/mm3 Baso # (Auto) 0.06 (0.01-0.08) K/mm3 Manual Slide Review Abnormal smear PT 11.8 (9.7-12.0) SECONDS INR 1.09 Sodium 141 (136-145) mEq/L Potassium 3.8 (3.5-5.1) mEq/L Chloride 99 (98-107) mEq/L Carbon Dioxide 22 (21-32) mEq/L Anion Gap 23.8 H (5-15) BUN 14 (7-18) mg/dL Creatinine 1.1 (0.7-1.3) mg/dL Est Cr Clr Drug Dosing 100.47 mL/min Estimated GFR (MDRD) > 60 (>60) mL/min BUN/Creatinine Ratio 12.7 L (14-18) Glucose 136 H (74-106) mg/dL Calcium 8.1 L (8.5-10.1) mg/dL Magnesium 1.9 (1.8-2.4) mg/dl Total Bilirubin 0.5 (0.2-1.0) mg/dL AST 51 H (15-37) U/L ALT 58 (16-63) U/L Alkaline Phosphatase 113 (46-116) U/L Total Protein 7.7 (6.4-8.2) g/dl Albumin 4.0 (3.4-5.0) g/dl Globulin 3.7 gm/dL Albumin/Globulin Ratio 1.1 (1-2) Urine Color (Yellow) Urine Appearance (Clear) Urine pH (5.0-8.0) Ur Specific [place] (1.005-1.030) Urine Protein (Negative) Urine Glucose (UA) (Negative) Urine Ketones (Negative) Urine Occult Blood (Negative) Urine Nitrite (Negative) Urine Bilirubin (Negative) Urine Urobilinogen (0.2-1.0) Ur Leukocyte Esterase (Negative) Urine RBC (0-5) /hpf Urine WBC (0-5) /hpf Ur Squamous Epith Cells (0-5) /hpf Amorphous Sediment (NOT SEEN) /hpf Urine Bacteria (FEW) /hpf Hyaline Casts (0-5) /lpf Urine Mucus (FEW) /hpf Urine Opiates Screen (MXHHIT=867) Ur Buprenorphine Scrn (CUTOFF=10) Ur Oxycodone Screen (TCW7DS=103) Urine Methadone Screen (PTM5ZH=504) Ur Propoxyphene Screen (RVUWIL=294) Ur Barbiturates Screen (GAPUGT=078) Ur Tricyclics Screen (DENFOG=738) Ur Phencyclidine Scrn (CUTOFF=25) Ur Amphetamine Screen (JUNATG=991) U Methamphetamines Scrn (JRWUWS=908) U Benzodiazepines Scrn (FUXVSR=498) U Cocaine Metab Screen (OBPOEQ=339) U Marijuana (THC) Screen (CUTOFF=50) Ethyl Alcohol 0.23 (0.00) gm% 02/13/19 02/13/19 Range/Units 14:40 14:40 WBC (4.23-9.07) K/mm3 RBC (4.63-6.08) M/mm3 Hgb (13.7-17.5) gm/dl Hct (40.1-51.0) % MCV (79.0-92.2) fl MCH (25.7-32.2) pg MCHC (32.2-35.5) g/dl RDW Std Deviation (35.1-43.9) fL Plt Count (163-337) K/mm3 MPV (9.4-12.3) fl Neut % (Auto) (34.0-67.9) % Lymph % (Auto) (21.8-53.1) % Crisp % (Auto) (5.3-12.2) % Eos % (Auto) (0.8-7.0) Baso % (Auto) (0.1-1.2) % Neut # (Auto) (1.78-5.38) K/mm3 Lymph # (Auto) (1.32-3.57) K/mm3 Crisp # (Auto) (0.30-0.82) K/mm3 Eos # (Auto) (0.04-0.54) K/mm3 Baso # (Auto) (0.01-0.08) K/mm3 Manual Slide Review PT (9.7-12.0) SECONDS INR Sodium (136-145) mEq/L Potassium (3.5-5.1) mEq/L Chloride (98-107) mEq/L Carbon Dioxide (21-32) mEq/L Anion Gap (5-15) BUN (7-18) mg/dL Creatinine (0.7-1.3) mg/dL Est Cr Clr Drug Dosing mL/min Estimated GFR (MDRD) (>60) mL/min BUN/Creatinine Ratio (14-18) Glucose (74-106) mg/dL Calcium (8.5-10.1) mg/dL Magnesium (1.8-2.4) mg/dl Total Bilirubin (0.2-1.0) mg/dL AST (15-37) U/L ALT (16-63) U/L Alkaline Phosphatase (46-116) U/L Total Protein (6.4-8.2) g/dl Albumin (3.4-5.0) g/dl Globulin gm/dL Albumin/Globulin Ratio (1-2) Urine Color Yellow (Yellow) Urine Appearance Clear (Clear) Urine pH 6.0 (5.0-8.0) Ur Specific [place] > or = 1.030 (1.005-1.030) Urine Protein 3+ H (Negative) Urine Glucose (UA) Negative (Negative) Urine Ketones Trace H (Negative) Urine Occult Blood 3+ H (Negative) Urine Nitrite Negative (Negative) Urine Bilirubin Negative (Negative) Urine Urobilinogen 0.2 (0.2-1.0) Ur Leukocyte Esterase Negative (Negative) Urine RBC 5-10 H (0-5) /hpf Urine WBC 0-5 (0-5) /hpf Ur Squamous Epith Cells 0-5 (0-5) /hpf Amorphous Sediment Few H (NOT SEEN) /hpf Urine Bacteria Rare (FEW) /hpf Hyaline Casts 30-40 H (0-5) /lpf Urine Mucus Many H (FEW) /hpf Urine Opiates Screen Negative (VXLCXV=570) Ur Buprenorphine Scrn Negative (CUTOFF=10) Ur Oxycodone Screen Negative (OUH6SU=241) Urine Methadone Screen Negative (OAE9BC=798) Ur Propoxyphene Screen Negative (NNXWNU=161) Ur Barbiturates Screen Negative (FRHJMS=746) Ur Tricyclics Screen Negative (YMFIZZ=030) Ur Phencyclidine Scrn Negative (CUTOFF=25) Ur Amphetamine Screen Negative (BPDKWH=109) U Methamphetamines Scrn Negative (UXCPLC=442) U Benzodiazepines Scrn Negative (JMGADP=313) U Cocaine Metab Screen Negative (XBKUPE=058) U Marijuana (THC) Screen Negative (CUTOFF=50) Ethyl Alcohol (0.00) gm% Meds: Medications Generic Name Dose Route Start Last Admin Trade Name Freq PRN Reason Stop Dose Admin Sodium Chloride 10 ml 02/13/19 12:37 02/13/19 12:47 Saline Flush FLUSH 10 ml ASDIRECTED PRN Administration Keep Vein Open Discontinued Medications Generic Name Dose Route Start Last Admin Trade Name Freq PRN Reason Stop Dose Admin Sodium Chloride 1,000 mls @ 999 mls/hr 02/13/19 12:37 02/13/19 14:58 Normal Saline IV 02/13/19 13:37 999 mls/hr ONETIME ONE Administration Sodium Chloride 1,000 mls @ 999 mls/hr 02/13/19 14:49 02/13/19 16:11 Normal Saline IV 02/13/19 15:49 999 mls/hr ONETIME ONE Administration Sodium Chloride Confirm 02/13/19 16:09 Normal Saline Administered 02/13/19 16:10 Dose 1,000 mls @ as directed .ROUTE .STK-MED ONE Lorazepam 1 mg 02/13/19 12:37 02/13/19 12:48 Ativan IVPUSH 02/13/19 12:38 1 mg ONETIME ONE Administration Metoclopramide HCl 10 mg 02/13/19 12:37 02/13/19 12:48 Reglan IVPUSH 02/13/19 12:38 10 mg ONETIME ONE Administration - Re-Assessments/Exams Free Text/Narrative Re-Assessment/Exam: 02/13/19 12:54 Patient presents to the ED for alcohol issues. Since his last drink was at 9 AM , and this was a 5-day binge of alcohol use, I believe he has a low possibility of suffering from DTs, or alcohol induced seizures. Will treat symptoms, given some IV fluids and check labs, plan to send him to [facility] for outpatient therapy. Pt is okay with this plan at this time. We will likely send him home with nausea medications, but nothing for alcohol detox. He will be told to take his regular blood pressure medications as previously prescribed. 02/13/19 15:18 Patient was reassessed at bedside, states he is feeling mildly better. He has received almost 2 bags of fluids, he will receive a third bag of fluids in the ER, as he is 400 pounds, and I believe that his body habitus can handle this. His anion gap was markedly elevated at 23. His blood alcohol was 0.23 at this time. The 3 L of fluids should help drive this below 0.2. As stated above I will get him some outpatient antinausea medication but will not prescribe him any sort of Ativan for management in [facility] at this time. 02/13/19 16:19 [facility] services was called, and they are going to call the patient to see if he would want outpatient treatment versus residential treatment at their facility. 02/13/19 16:56 Staff from [facility] did come and talk with the patient, he states he does not want to go there for management at this time. I will discharge him home with general recommendations, and have him follow-up with [facility] if he should desire outpatient treatment. Departure - Departure Time of Disposition: 16:57 Disposition: Home, Self-Care 01 Condition: Fair Clinical Impression: Alcohol abuse - Discharge Information *PRESCRIPTION DRUG MONITORING PROGRAM REVIEWED*: No *COPY OF PRESCRIPTION DRUG MONITORING REPORT IN PATIENT MELANIA: No Instructions: Binge-Drinking Information, Adult, Alcohol Abuse and Nutrition Referrals: João Mazariegos MD [Primary Care Provider] - Additional Instructions: You were evaluated in the ER today regarding your alcohol abuse. Your blood alcohol level was 0.23 at today's visit, you were given 3 L of fluid , some Ativan, and an antinausea medication in this ER for management of your symptoms. Your laboratory evaluation was essentially within normal limits, you were dehydrated by lab standards, and again you received 3 L of fluid for this. Recommend that you go home and drink plenty of fluids that are not alcohol related, Gatorade or Powerade would suffice. Please try to eat a few hearty meals in the next few days. Please try your best to refrain from alcohol use at this time, [facility] number is [phone], their emergency crisis number is [phone]. Please call them if you feel you should need outpatient alcohol management treatment at this time. Please return to the ER at any time if your symptoms change or worsen. Sepsis Event Note - Evaluation Sepsis Screening Result: No Definite Risk - Focused Exam Vital Signs: Vital Signs Temp Pulse Resp BP Pulse Ox 02/13/19 11:02 98.9 F 113 H 16 146/85 H 96 Date Exam was Performed: 02/13/19 Time Exam was Performed: 16:56 - My Orders Last 24 Hours: My Active Orders 02/13/19 12:37 Peripheral IV Care [RC] . DIRECTED Sodium Chloride 0.9% [Saline Flush] 10 ml FLUSH ASDIRECTED PRN Peripheral IV Insertion Adult [OM.PC] Stat - Assessment/Plan Last 24 Hours: My Active Orders 02/13/19 12:37 Peripheral IV Care [RC] . DIRECTED Sodium Chloride 0.9% [Saline Flush] 10 ml FLUSH ASDIRECTED PRN Peripheral IV Insertion Adult [OM.PC] Stat
[2019-02-13] MEDS ORDERED: Sodium Chloride 0.9% 1,000 ML IV ONE (14:49)
[2019-02-13] MEDS ORDERED: Sodium Chloride 0.9% 1,000 ML ONE (16:09)
== END 2019-02-13 17:30 | disposition home or self-care (01) ==
LOC: JD.ED 10:41
DX: F10.10 Alcohol abuse, uncomplicated (principal); I10 Essential (primary) hypertension; E11.9 Type 2 diabetes mellitus without complications; Z79.899 Other long term (current) drug therapy
CPT/HCPCS: 36415; 80053; 80306; 80320; 81001; 83735; 85025; 85610; 96361; 96374; 96375; 99283; J2060; J2765; J7030; G0480

== ENCOUNTER 2019-02-17 01:04 | Emergency (ER) | payer MEDICAID ==
[2019-02-17] MEDS ORDERED: LORazepam 1 MG Tab PO ONE ×3 (03:10→08:52)
[2019-02-17] MEDS ORDERED: Ondansetron 4 MG Tab.DIS PO ONE (03:10)
[2019-02-17] MEDS ORDERED: Acetaminophen 325 MG Tab PO ONE (05:06)
[2019-02-17] MEDS ORDERED: Potassium Chloride 20 MEQ Tab.ER PO ONE (06:28)
--- NOTE | 2019-02-17 06:30 | EDM.PDOC ---
ED HPI GENERAL MEDICAL PROBLEM - General Chief Complaint: ENT Problem Stated Complaint: alcohol Time Seen by Provider: 02/17/19 02:38 - History of Present Illness INITIAL COMMENTS - FREE TEXT/NARRATIVE: 29-year-old male is here requesting help with detox from alcohol. He was seen here couple nights ago and was [place] he went home and didn't fill his Ativan and started drinking again. He still little anxious at this point since his last drink was earlier today. He denies any medical problems except chronic alcoholism this is cost him his most recent job. He denies any other problems at this point. Generalized Pain Score (Numeric/FACES): 5 - Related Data Allergies Allergy/AdvReac Type Severity Reaction Status Date / Time No Known Allergies Allergy Verified 02/17/19 02:31 Home Meds: Home Meds Nebivolol HCl [Bystolic] 20 mg PO DAILY 05/15/18 [History] amLODIPine Besylate [Amlodipine Besylate] 10 mg PO DAILY 05/15/18 [History] Valsartan/Hydrochlorothiazide [Valsartan-Hctz 320-25 mg Tab] 320 mg PO DAILY 04/24 [History] Ondansetron [Zofran ODT] 4 mg PO Q8H PRN #4 tab.dis 02/13/19 [Rx] LORazepam [Ativan] 2 mg PO Q8H #15 tablet 02/17/19 [Rx] Potassium Chloride [Klor-Con M20] 20 meq PO Q12H #8 tab.er 02/17/19 [Rx] Past Medical History - Past Health History Medical/Surgical History: Denies Medical/Surgical History HEENT History: Reports: None Cardiovascular History: Reports: Hypertension Respiratory History: Reports: Asthma Gastrointestinal History: Reports: None Genitourinary History: Reports: None Musculoskeletal History: Reports: None Neurological History: Reports: None Other Neuro History: is going through withdrawals last drink 914 2 shots of rum (shooters) Psychiatric History: Reports: Anxiety, Depression Other Psychiatric History: ETOH abuse Endocrine/Metabolic History: Reports: Diabetes, Type II Hematologic History: Reports: None Immunologic History: Reports: None Oncologic (Cancer) History: Reports: None Dermatologic History: Reports: None - Infectious Disease History Infectious Disease History: Reports: None - Past Surgical History Head Surgeries/Procedures: Reports: None Social & Family History - Family History Family Medical History: Noncontributory - Tobacco Use Smoking Status *Q: Never Smoker Second Hand Smoke Exposure: No - Caffeine Use Caffeine Use: Reports: Soda - Alcohol Use Days Per Week of Alcohol Use: 7 Number of Drinks Per Day: 7 Total Drinks Per Week: 49 Date of Last Drink: 02/16/19 Time of Last Drink: 21:00 - Recreational Drug Use Recreational Drug Use: No ED ROS GENERAL - Review of Systems Review Of Systems: See Below Constitutional: Reports: No Symptoms HEENT: Reports: No Symptoms Respiratory: Reports: No Symptoms Cardiovascular: Reports: No Symptoms Endocrine: Reports: No Symptoms GI/Abdominal: Reports: No Symptoms ED EXAM, GENERAL - Physical Exam Exam: See Below Exam Limited By: Intoxication General Appearance: Alert, No Apparent Distress Eye Exam: Bilateral Eye: Normal Inspection, PERRL Ears: Normal External Exam, Normal Canal, Hearing Grossly Normal, Normal TMs Nose: Normal Inspection, Normal Mucosa, No Blood Throat/Mouth: Normal Inspection, Normal Lips, Normal Gums, Normal Oropharynx, Normal Voice, No Airway Compromise Head: Atraumatic, Normocephalic Neck: Normal Inspection, Supple, Non-Tender, Full Range of Motion Respiratory/Chest: No Respiratory Distress, Lungs Clear, Normal Breath Sounds Cardiovascular: Normal Peripheral Pulses, Regular Rate, Rhythm, No Edema GI/Abdominal: Normal Bowel Sounds, Soft, Non-Tender, Other Back Exam: Normal Inspection. No: CVA Tenderness (L), CVA Tenderness (R) Extremities: Normal Inspection, Normal Range of Motion Neurological: Alert, Oriented, Normal Cognition Skin Exam: Warm, Dry Course - Vital Signs Last Recorded V/S: Last Vital Signs Temp 37.2 C 02/17/19 08:11 Pulse 92 02/17/19 08:11 Resp 16 02/17/19 08:11 BP 122/60 02/17/19 08:11 Pulse Ox 95 02/17/19 08:11 - Orders/Labs/Meds Labs: Laboratory Tests 02/17/19 02/17/19 Range/Units 03:24 03:24 WBC 11.66 H (4.23-9.07) K/mm3 RBC 5.62 (4.63-6.08) M/mm3 Hgb 14.7 (13.7-17.5) gm/dl Hct 41.6 (40.1-51.0) % MCV 74.0 L (79.0-92.2) fl MCH 26.2 (25.7-32.2) pg MCHC 35.3 (32.2-35.5) g/dl RDW Std Deviation 38.3 (35.1-43.9) fL Plt Count 167 (163-337) K/mm3 MPV 8.1 L (9.4-12.3) fl Neutrophils % (Manual) 67 H (40-60) % Band Neutrophils % 8 (0-10) % Lymphocytes % (Manual) 16 L (20-40) % Atypical Lymphs % 0 % Monocytes % (Manual) 7 (2-10) % Eosinophils % (Manual) 1 (0.8-7.0) % Basophils % (Manual) 1 (0.2-1.2) Toxic Granulation 1+ slight Platelet Estimate Adequate Plt Morphology Comment Normal Microcytosis 2+ moderate RBC Morph Comment Not Reportable Sodium 137 (136-145) mEq/L Potassium 3.0 L (3.5-5.1) mEq/L Chloride 97 L (98-107) mEq/L Carbon Dioxide 23 (21-32) mEq/L Anion Gap 20.0 H (5-15) BUN 7 (7-18) mg/dL Creatinine 1.1 (0.7-1.3) mg/dL Est Cr Clr Drug Dosing 100.47 mL/min Estimated GFR (MDRD) > 60 (>60) mL/min BUN/Creatinine Ratio 6.4 L (14-18) Glucose 144 H (74-106) mg/dL Calcium 7.8 L (8.5-10.1) mg/dL Total Bilirubin 0.9 (0.2-1.0) mg/dL AST 180 H (15-37) U/L ALT 98 H (16-63) U/L Alkaline Phosphatase 121 H (46-116) U/L Total Protein 7.4 (6.4-8.2) g/dl Albumin 3.7 (3.4-5.0) g/dl Globulin 3.7 gm/dL Albumin/Globulin Ratio 1.0 (1-2) Lipase 479 H (73-393) U/L Ethyl Alcohol 0.26 (0.00) gm% Meds: Medications Discontinued Medications Generic Name Dose Route Start Last Admin Trade Name Freq PRN Reason Stop Dose Admin Acetaminophen 650 mg 02/17/19 05:06 02/17/19 05:10 Tylenol PO 02/17/19 05:07 650 mg NOW ONE Administration Lorazepam 1 mg 02/17/19 03:10 02/17/19 03:15 Ativan PO 02/17/19 03:11 1 mg ONETIME ONE Administration Lorazepam 1 mg 02/17/19 06:29 02/17/19 06:46 Ativan PO 02/17/19 06:30 1 mg ONETIME ONE Administration Lorazepam 2 mg 02/17/19 08:52 02/17/19 08:58 Ativan PO 02/17/19 08:53 2 mg ONETIME ONE Administration Ondansetron HCl 8 mg 02/17/19 03:10 02/17/19 03:15 Zofran Odt PO 02/17/19 03:11 8 mg ONETIME ONE Administration Potassium Chloride 40 meq 02/17/19 06:28 02/17/19 06:46 Klor-Con M20 PO 02/17/19 06:29 40 meq ONETIME ONE Administration - Re-Assessments/Exams Free Text/Narrative Re-Assessment/Exam: 02/17/19 06:30 The presents emergency room intoxicated wishing help with detox. The patient was seen here a couple days ago but went home and drank rather go to [place] like he was instructed to he did not filler picker his Ativan. I discussed the patient 's case with Alicia [place] the [place] who informs me that the patient can come over after we get him medically cleared. At this time he is medically cleared to go over. Departure - Departure Time of Disposition: 06:36 Disposition: Home, Self-Care 01 Clinical Impression: Alcohol withdrawal syndrome, Alcohol abuse - Discharge Information Prescriptions: LORazepam [Ativan] 2 mg PO Q8H #15 tablet Potassium Chloride [Klor-Con M20] 20 meq PO Q12H #8 tab.er Instructions: Alcohol Use Disorder, Alcohol Withdrawal Syndrome, [id number] Referrals: João Mazariegos MD [Primary Care Provider] - Forms: ED Department Discharge Additional Instructions: Return to the emergency room with any questions or problems Go to [place]. Take the medications as directed. Follow-up with your regular provider in 4-5 days no Sepsis Event Note - Evaluation Sepsis Screening Result: No Definite Risk - Focused Exam Vital Signs: Vital Signs Temp Pulse Resp BP Pulse Ox 02/17/19 08:11 37.2 C 92 16 122/60 95 Date Exam was Performed: 02/17/19 Time Exam was Performed: 19:17
== END 2019-02-17 09:00 | disposition home or self-care (01) ==
LOC: JD.ED 01:04
DX: F10.239 Alcohol dependence with withdrawal, unspecified (principal); E11.9 Type 2 diabetes mellitus without complications; I10 Essential (primary) hypertension; J45.909 Unspecified asthma, uncomplicated; Y90.0 Blood alcohol level of less than 20 mg/100 ml; Z79.899 Other long term (current) drug therapy
CPT/HCPCS: 36415; 80053; 80320; 83690; 85007; 85027; 99284; A9270; 99283; G0480